=== PATIENT | female | born 1940 | race Caucasian/White ===

== ENCOUNTER → 2017-05-24 | Outpatient (CLI) | payer MEDICARE, OTHER ==
--- NOTE | 2017-05-24 13:04 | RADIOLOGY REPORT (SQ) ---
EXAM DESCRIPTION: CT ABD/PELVIS NO ORAL OR IV COMPLETED DATE/TIME: 05/24/2017 10:18 am REASON FOR STUDY: ABD PAIN (R10.9) R10.9 UNSPECIFIED ABDOMINAL PAIN COMPARISON: None. TECHNIQUE: CT scan of the abdomen and pelvis performed without intravenous or oral contrast. Images reviewed with lung, soft tissue, and bone windows. Reconstructed coronal and sagittal MPR images revi ewed. All images stored on PACS. All CT scanners at this facility use dose modulation, iterative reconstruction, and/or weight based d osing when appropriate to reduce radiation dose to as low as reasonably achievable (ALARA). [facility]: Dose Right [facility]: CareDose [facility]: Dose Right [facility]: Teradose 4D [facility]: [employer] Technologies RADIATION DOSE: Up-to-date CT equipment and radiation dose reduction techniques were employed. CTDIv ol: 8.0 mGy. DLP: 403 mGy-cm.mGy. LIMITATIONS: None. FINDINGS: LOWER CHEST: No significant findings. No nodules or infiltrates. NON-CONTRASTED LIVER, SPLEEN, ADRENALS: A couple of low-density lesions are seen in the liver suggest zoraida of cysts or perhaps hemangiomas. The spleen and adrenal glands are normal. PANCREAS: No masses. No peripancreatic inflammatory changes. GALLBLADDER: No identified stones by CT criteria. No inflammatory changes to suggest cholecystitis. RIGHT KIDNEY AND URETER: No suspicious masses. Assessment limited by lack of IV contrast. No signif icant calcifications. No hydronephrosis or hydroureter. LEFT KIDNEY AND URETER: No suspicious masses. Assessment limited by lack of IV contrast. No signifi cant calcifications. No hydronephrosis or hydroureter. AORTA AND RETROPERITONEUM: No aneurysm. Considerable atherosclerosis including plaques at the origin of SMA and celiac. BOWEL AND PERITONEAL CAVITY: Occasional diverticula are present. No masses are seen. No inflammator y changes are seen. APPENDIX: Not identified. PELVIS, BLADDER, AND ABDOMINAL WALL:The urinary bladder is normal. Uterus is normal for age. There is no adnexal mass or fluid collection. BONES: Lumbar degenerative disc changes. OTHER: No other significant finding. IMPRESSION: 1. Atherosclerosis as described. 2. Minimal diverticulosis coli. 3. Other findings as described. TECHNICAL DOCUMENTATION: JOB ID: [id number] Quality ID # [id number]: Final reports with documentation of one or more dose reduction techniques (e.g., Au tomated exposure control, adjustment of the mA and/or kV according to patient size, use of iterative reconstruction technique) 2010 [employer]- All Rights Reserved
== END ==
LOC: RAD 09:41
PROVIDERS: ATTEND Specialist
DX: R10.9 Unspecified abdominal pain (principal); K57.90 Diverticulosis of intestine, part unspecified, without perforation or abscess without bleeding
CPT/HCPCS: 74176

== ENCOUNTER 2017-06-01 09:34 | Day surgery (SDC) | payer MEDICARE, OTHER ==
--- NOTE | 2017-05-28 13:58 | HISTORY AND PHYSICAL E ---
History and Physical NAME: PAYTON MOREIRA : 1940 AGE: 77Y ADMITTED: 06/01/2017 ROOM: CHIEF COMPLAINT: Abdominal pain. REVIEW OF SYSTEMS: On records, she did have colonoscopy in 1999 showing diverticulosis rectosigmoid. She did have external hemorrhoids. The patient did have another colonoscopy 2003. Upper scope in 2003 showed esophagitis, gastritis and duodenitis and the colon again showed sigmoid diverticulosis, lazy bowel and anemia. The patient did have another colonoscopy done 2014. Back in 2014, she did have colon exam for rectal bleeding, difficult, successful to the cecum, lazy bowel. She does not need colonoscopy since 2019 and beyond. I said consider colonoscopy 10 years in 2014, so at this time will proceed with upper scope regarding reflux and abdominal pain. She did have CEA normal at 1.9. SOCIAL HISTORY: . Does not smoke. Does not drink. PAST SURGICAL HISTORY: 1. Colonoscopy done in 2014. She did have 2. She did have open heart stent 2 bypass. PHYSICAL EXAMINATION: GENERAL: Pleasant, alert and oriented. VITAL SIGNS: Blood pressure 120/80, pulse 80, respirations 18, temp is 98. HEAD, EYES, EARS, NOSE AND THROAT: Normal. ABDOMEN: Soft. NEUROLOGICAL: Exam negative. CONCLUSIONS: Diverticulosis. PLAN: Abdominopelvic CT plain, upper scope scheduled for 06/01/2017. DICTATING PHYSICIAN: SALAZAR PYLE M.D. [id number] PHY#: [id number] ID: [id number] JOB#: [id number] ACCT: [id number] cc:JACK OLIVEROS M.D., MAHMOUD M.D. >
[2017-06-01] MEDS ORDERED: GLYCOPYRROLATE INJ 0.4 MG/2 ML VIAL ONE (10:15)
[2017-06-01] MEDS ORDERED: ONDANSETRON HCL INJ/PF 4 MG/2 ML SDV ONE (10:15)
[2017-06-01] MEDS ORDERED: NALOXONE HCL INJ/PF 0.4 MG/1 ML SDV ONE (10:15)
[2017-06-01] MEDS ORDERED: FLUMAZENIL INJ 0.5 MG/5 ML VIAL IV ONE (10:16)
[2017-06-01] MEDS ORDERED: EPINEPHRINE INJ 1 MG/10 ML DISP.SYRIN ONE (10:16)
[2017-06-01] MEDS ORDERED: MIDAZOLAM 2 MG/2 ML INJ ONE (10:16)
[2017-06-01] MEDS ORDERED: FENTANYL CITRATE INJ/PF 100 MCG/2 ML AMPUL ONE (10:16)
[2017-06-01 11:42] VITALS: BP 143/75
[2017-06-01 11:56] LABS: ABSOLUTE EOSINOPHILS # (AUTO) 0.2 10^3/uL (0.0-0.6); ABSOLUTE LYMPHOCYTES (AUTO) 1.2 10^3/uL (0.5-4.7); ABSOLUTE MONOCYTES (AUTO) 0.3 10^3/uL (0.1-1.4); ABSOLUTE NEUT (AUTO) 3.6 10^3/uL (1.7-8.2); BASOPHILS % (AUTO) 0.7 % (0-2); EOSINOPHILS % (AUTO) 3.6 % (0-6); HEMATOCRIT 37.4 % (36.0-47.0); HEMOGLOBIN 12.6 g/dL (12.0-15.5); HGB HCT DIFFERENCE 0.4; LYMPHOCYTES % (AUTO) 22.6 % (13-45); MEAN CORPUSCULAR HGB CONC 33.6 g/dL (32.0-36.0); MEAN CORPUSCULAR VOLUME 86 fl (80-97); MONOCYTES % (AUTO) 5.3 % (3-13); RED BLOOD COUNT 4.33 10^6/uL (3.72-5.28); RED CELL DISTRIBUTION WIDTH 13.8 % (11.5-14.0); SEGMENTED NEUTROPHILS % (AUTO) 67.8 % (42-78); WHITE BLOOD COUNT 5.3 10^3/uL (4.0-10.5)
--- NOTE | 2017-06-01 12:58 | DISCHARGE SUMMARY E ---
Discharge Summary NAME: PAYTON MOREIRA : 1940 AGE: 77Y ADMITTED: 06/01/2017 DISCHARGED: 06/01/2017 HISTORY/HOSPITAL COURSE: The patient is a 77-year-old female who presents with abdominal pain. She does take aspirin 325 mg. Upper endoscopy today showed no bleeding, no malignancy, no ulcers. She does have a small hiatal hernia, mild esophagitis, mild gastritis, mild duodenitis. MEDICATIONS: 1. The patient does take Fosamax. 2. She takes aspirin 325 mg. 3. Synthroid. DISCHARGE PLAN: 1. Baseline CBC. 2. Hold aspirin for 5 days. 3. Hold Fosamax for 5 days. 4. Followup office visit in a few days. DICTATING PHYSICIAN: SALAZAR PYLE M.D. [id number] PHY#: [id number] ID: [id number] JOB#: [id number] ACCT: [id number] cc:JACK OLIVEROS M.D., MAHMOUD M.D. >
--- NOTE | 2017-06-01 13:01 | OPERATIVE REPORT E ---
Operative Report NAME: PAYTON MOREIRA : 1940 AGE: 77Y DATE OF SURGERY: 06/01/2017 ROOM: PREOPERATIVE DIAGNOSIS: ABDOMINAL PAIN. POSTOPERATIVE DIAGNOSES: 1. ESOPHAGITIS. 2. MILD GASTRITIS. 3. MILD DUODENITIS. 4. MILD SMALL HIATUS HERNIA. OPERATION: 1. Esophagoscopy. 2. Gastroscopy. 3. Duodenoscopy. SURGEON: SALAZAR PYLE M.D. ANESTHESIA: Versed 2, fentanyl 50. TISSUE REMOVED OR ALTERED: None. PROCEDURE: Baby scope passed under guided vision. No difficulties. Esophagoscopy: Junction at 40, small hiatus hernia. No evidence of ulcers, mild esophagitis. Gastroscopy: Mild gastritis. Duodenoscopy: Mild duodenitis. CONCLUSIONS: No evidence of ulcers, small hiatus hernia, mild esophagitis, mild gastritis, mild duodenitis. The patient tolerated the procedure well and discharged to her room in stable condition. PLAN: Baseline CBC. Hold aspirin and nonsteroidal 5 days. Followup office visit in 5 day. DICTATING PHYSICIAN: SALAZAR PYLE M.D. [id number] PHY#: [id number] ID: [id number] JOB#: [id number] ACCT: [id number] cc:JACK OLIVEROS M.D., MAHMOUD M.D. >
== END 2017-06-01 12:00 | disposition home or self-care (01) ==
LOC: END 09:34
PROVIDERS: ATTEND Specialist
PROC: 0DJ08ZZ Inspection of Upper Intestinal Tract, Via Natural or Artificial Opening Endoscopic (ICD-10-PCS; principal; 2017-06-01 10:00)
DX: K44.9 Diaphragmatic hernia without obstruction or gangrene (principal); K20.9 Esophagitis, unspecified; K29.70 Gastritis, unspecified, without bleeding; K29.80 Duodenitis without bleeding; Z79.899 Other long term (current) drug therapy; Z79.82 Long term (current) use of aspirin; Z98.61 Coronary angioplasty status
CPT/HCPCS: 43235; 36415; 85025; J2250; J3010; J2405; J0171; J2310; J3490

== ENCOUNTER 2017-09-26 23:47 | Emergency (ER) | payer MEDICARE, OTHER ==
[2017-09-27] MEDS ORDERED: TRAZODONE HCL 50 MG TABLET PO ONE (02:28)
--- NOTE | 2017-09-27 02:30 | ER Document Report ---
ED General - General Chief Complaint: High Blood Pressure Stated Complaint: BLOOD PRESSURE PROBLEM Time Seen by Provider: 09/27/17 01:43 Notes: Patient is a 77-year-old female who presents with concerns about elevated blood pressure. She reports that she has checked her blood pressure at least 15 times a day and that it remains persistently elevated. She denies any associated chest pain, shortness of breath, headache, neck pain, weakness, numbness or altered mental status. Her only blood pressure medicine is hydrochlorothiazide 12.5 mg daily. She did recently lose her but notes that her blood pressure was high even before he . She was since our primary care doctor regarding this concern was put on buspirone. She has not noted that anything seems to improve or worsen her hypertension. TRAVEL OUTSIDE OF THE [place] IN LAST 30 DAYS: No - Related Data Allergies/Adverse Reactions: No Known Allergies Allergy (Verified 06/01/17 09:57) Past Medical History - General Information source: Patient - Social History Smoking Status: Never Smoker Frequency of alcohol use: None Drug Abuse: None Lives with: Family Family History: Reviewed & Not Pertinent Patient has suicidal ideation: No Patient has homicidal ideation: No - Past Medical History Cardiac Medical History: Reports: Hx Coronary Artery Disease, Hx Heart Attack - 1989, Hx Hypercholesterolemia, Hx Hypertension Denies: Hx Atrial Fibrillation, Hx Congestive Heart Failure, Hx Peripheral Vascular Disease, Hx Pulmonary Embolism, Hx Heart Murmur Pulmonary Medical History: Reports: Hx Asthma, Hx COPD Denies: Hx Bronchitis, Hx Pneumonia, Hx Respiratory Failure, Hx Sleep Apnea, Hx Tuberculosis Neurological Medical History: Denies: Hx Cerebrovascular Accident, Hx Seizures Endocrine Medical History: Reports: Hx Hypothyroidism Renal/ Medical History: Denies: Hx End Stage Renal Disease, Hx Kidney Stones, Hx Peritoneal Dialysis Malignancy Medical History: Denies: Hx Lung Cancer GI Medical History: Reports: Hx Gastroesophageal Reflux Disease. Denies: Hx Hepatitis, Hx Hiatal Hernia, Hx Irritable Bowel, Hx Liver Failure, Hx Pancreatitis, Hx Ulcer Musculoskeltal Medical History: Denies Hx Arthritis, Denies Hx Fibromyalgia, Denies Hx Multiple Sclerosis, Denies Hx Muscular Dystrophy Psychiatric Medical History: Denies: Hx Bipolar Disorder, Hx Dementia, Hx Depression, Hx Post Traumatic Stress Disorder, Hx Schizophrenia Traumatic Medical History: Denies: Hx Fractures Infectious Medical History: Denies: Hx Hepatitis Past Surgical History: Reports: Hx Cardiac Surgery - CABG, Hx Open Heart Surgery - 1989. Denies: Hx Colostomy, Hx Hysterectomy, Hx Mastectomy, Hx Pacemaker - Immunizations Hx Diphtheria, Pertussis, Tetanus Vaccination: Yes Hx Pneumococcal Vaccination: 11/21/12 Review of Systems - Review of Systems Notes: Constitutional: Negative for fever. HENT: Negative for sore throat. Eyes: Negative for visual changes. Cardiovascular: Negative for chest pain. Respiratory: Negative for shortness of breath. Gastrointestinal: Negative for abdominal pain, vomiting or diarrhea. Genitourinary: Negative for dysuria. Musculoskeletal: Negative for back pain. Skin: Negative for rash. Neurological: Negative for headaches, weakness or numbness. 10 point ROS negative except as marked above and in HPI. Physical Exam - Vital signs Vitals: Temp Pulse Resp BP Pulse Ox 97.9 F 74 16 187/97 H 94 09/27/17 00:10 09/27/17 00:10 09/27/17 00:10 09/27/17 00:10 09/27/17 00:10 Interpretation: Hypertensive Notes: PHYSICAL EXAMINATION: GENERAL: Well-appearing, well-nourished and in no acute distress. HEAD: Atraumatic, normocephalic. EYES: Pupils equal round and reactive to light, extraocular movements intact, sclera anicteric, conjunctiva are normal. ENT: nares patent, oropharynx clear without exudates. Moist mucous membranes. NECK: Normal range of motion, supple without lymphadenopathy LUNGS: Breath sounds clear to auscultation bilaterally and equal. No wheezes rales or rhonchi. HEART: Regular rate and rhythm, 3 out of 6 systolic ejection murmur ABDOMEN: Soft, nontender, normoactive bowel sounds. No guarding, no rebound. No masses appreciated. EXTREMITIES: Normal range of motion, no pitting or edema. No cyanosis. NEUROLOGICAL: No focal neurological deficits. Moves all extremities spontaneously and on command. PSYCH: Normal mood, normal affect. SKIN: Warm, Dry, normal turgor, no rashes or lesions noted. Course - Re-evaluation Re-evalutation: 09/27/17 02:27 Presentation of asymptomatic hypertension. Patient denies any symptoms concerning for SAH, dissection, VA, or encephalopaty. Alert, oriented, and denies any symptoms at time of assessment. Normal neuro exam. Per [facility] policy guidelines no labs or imaging will be obtained. An EKG was obtained in triage and is noted to be unremarkable. I will increase patient's hydrochlorothiazide from 12.5 mg daily to 25 mg daily. Will also start the patient on trazodone as she is currently taking Xanax at night for sleep which is not an appropriate medication given her age and history of dementia. I have discussed critical importance of follow up with PCP within 1 week and increased risk of devastating stroke, heart attack, respiratory distress, and other life threatening complications if blood pressure is not reduced appropriately. Diet and exercise habits also discussed. Patient will be discharged with return precautions and follow-up recommendations. - Vital Signs Vital signs: Temp Pulse Resp BP Pulse Ox 97.9 F 74 16 187/97 H 94 09/27/17 00:10 09/27/17 00:10 09/27/17 00:10 09/27/17 00:10 09/27/17 00:10 - EKG Interpretation by Me Additional EKG results interpreted by me: 09/27/17 02:40 Sinus rhythm. Rate is 68. LVH. No ST elevations or depressions. QTC is 434. Discharge - Discharge Clinical Impression: Essential hypertension Insomnia Qualifiers: Insomnia type: unspecified Qualified Code(s): G47.00 - Insomnia, unspecified Condition: Good Disposition: HOME, SELF-CARE Additional Instructions: You were seen today for blood pressure that was high. This is a long-term risk factor for multiple medical problems including heart attack and stroke. However, the blood pressure in of itself will not cause you to have an acute stroke or heart attack over the course of just several days or weeks. You need to have a gradual reduction of your blood pressure back to normal levels over the next several months in conjunction with your primary care physician. Return if you develop headache, weakness, numbness, chest pain, pass out, or have any other symptoms that are concerning to you. Increase your hydrochlorothiazide from 12-1/2 mg daily to 25 mg daily. Please check your blood pressure at most once daily. Please discontinue the use of Xanax as this is not an appropriate medication given your age and history. You are instead being started on a medication called trazodone which you can use at night to assist with sleep. Prescriptions: Trazodone HCl [Desyrel 50 mg Tablet] 50 mg PO QHS #30 tablet RX: Hydrochlorothiazide 25 mg PO DAILY #30 tablet
[2017-09-27 03:06] VITALS: BP 180/91
--- NOTE | 2017-09-27 09:10 | EKG REPORT ---
SEVERITY:- ABNORMAL ECG - SINUS RHYTHM PROBABLE LEFT ATRIAL ABNORMALITY LVH WITH SECONDARY REPOLARIZATION ABNORMALITY ANTERIOR Q WAVES, POSSIBLY DUE TO LVH : Confirmed by: Jude Stuart 27-Sep-2017 09:09:44
== END 2017-09-27 03:04 | disposition home or self-care (01) ==
LOC: ER 23:47
DX: I10 Essential (primary) hypertension (principal); Z79.899 Other long term (current) drug therapy; G47.00 Insomnia, unspecified; I25.10 Atherosclerotic heart disease of native coronary artery without angina pectoris; I25.2 Old myocardial infarction; R01.1 Cardiac murmur, unspecified; J44.9 Chronic obstructive pulmonary disease, unspecified; Z95.1 Presence of aortocoronary bypass graft
CPT/HCPCS: 93005; 99283; 93010; A9270

== ENCOUNTER 2017-10-01 15:56 | Emergency (ER) | payer MEDICARE, OTHER ==
[2017-10-01] MEDS ORDERED: ONDANSETRON HCL INJ/PF 4 MG/2 ML SDV IV ONE ×2 (17:09→21:16)
[2017-10-01] MEDS ORDERED: LABETALOL HCL INJ 20 MG/4 ML DISP.SYRIN IV ONE ×3 (17:10→18:37)
[2017-10-01 19:44] LABS: ABSOLUTE EOSINOPHILS # (AUTO) 0.1 10^3/uL (0.0-0.6); ABSOLUTE LYMPHOCYTES (AUTO) 1.1 10^3/uL (0.5-4.7); ABSOLUTE MONOCYTES (AUTO) 0.4 10^3/uL (0.1-1.4); ABSOLUTE NEUT (AUTO) 5.4 10^3/uL (1.7-8.2); BASOPHILS % (AUTO) 0.5 % (0-2); EOSINOPHILS % (AUTO) 1.6 % (0-6); HEMATOCRIT 40.9 % (36.0-47.0); HEMOGLOBIN 13.8 g/dL (12.0-15.5); HGB HCT DIFFERENCE 0.5; LYMPHOCYTES % (AUTO) 15.7 % (13-45); MEAN CORPUSCULAR HEMOGLOBIN 28.7 pg (27.0-33.4); MEAN CORPUSCULAR HGB CONC 33.6 g/dL (32.0-36.0); MEAN CORPUSCULAR VOLUME 85 fl (80-97); MONOCYTES % (AUTO) 5.9 % (3-13); RED CELL DISTRIBUTION WIDTH 14.2 % (11.5-14.0); SEGMENTED NEUTROPHILS % (AUTO) 76.3 % (42-78)
[2017-10-01 20:05] LABS: ALANINE AMINOTRANSFERASE 27 U/L (9-52); ALBUMIN 4.3 g/dL (3.5-5.0); ALKALINE PHOSPHATASE 63 U/L (38-126); ANION GAP 10 (5-19); ASPARTATE AMINO TRANSFERASE 27 U/L (14-36); BILIRUBIN,DIRECT 0.4 mg/dL (0.0-0.4); BLOOD UREA NITROGEN 13 mg/dL (7-20); CALCIUM 9.8 mg/dL (8.4-10.2); CARBON DIOXIDE 30 mmol/L (22-30); CHLORIDE 93 mmol/L (98-107); CREATININE RESULT 0.76 mg/dL (0.52-1.25); GLUCOSE 117 mg/dL (75-110); MAGNESIUM 1.5 mg/dL (1.6-2.3); POTASSIUM 3.6 mmol/L (3.6-5.0); SODIUM 132.5 mmol/L (137-145)
[2017-10-01] MEDS ORDERED: MAGNESIUM SULFATE/D5W 1 GM/100 ML RTUPB IV ONE (20:33)
--- NOTE | 2017-10-01 20:47 | ER Document Report ---
ED General - General Chief Complaint: High Blood Pressure Stated Complaint: BLOOD PRESSURE PROBLEMS Time Seen by Provider: 10/01/17 16:58 Mode of Arrival: Medic Information source: Patient, Relative TRAVEL OUTSIDE OF THE [place] IN LAST 30 DAYS: No - HPI Patient complains to provider of: high blood pressure/nausea Onset: Last week Onset/Duration: Intermittent Quality of pain: No pain Associated symptoms: Nausea, Vomiting Exacerbated by: Denies Relieved by: Denies Notes: Patient was seen here last for hypertension. Hydrochlorothiazide was increased from 12.5-25 mg p.o. daily. Patient was taken off her benzodiazepine and given a prescription for trazodone which she has not filled yet. Patient presents with nausea vomiting and high blood pressure. Not fill her HCTZ prescription however she has doubled her dose using the medication she already had. - Related Data Allergies/Adverse Reactions: No Known Allergies Allergy (Verified 06/01/17 09:57) Past Medical History - General Information source: Patient, Relative - Social History Smoking Status: Former Smoker Chew tobacco use (# tins/day): No Frequency of alcohol use: None Drug Abuse: None Lives with: Family, Other - Patient's 1 week ago Family History: Reviewed & Not Pertinent Patient has suicidal ideation: No Patient has homicidal ideation: No - Past Medical History Cardiac Medical History: Reports: Hx Coronary Artery Disease, Hx Heart Attack - 1989, Hx Hypercholesterolemia, Hx Hypertension Denies: Hx Atrial Fibrillation, Hx Congestive Heart Failure, Hx Peripheral Vascular Disease, Hx Pulmonary Embolism, Hx Heart Murmur Pulmonary Medical History: Reports: Hx Asthma, Hx COPD Denies: Hx Bronchitis, Hx Pneumonia, Hx Respiratory Failure, Hx Sleep Apnea, Hx Tuberculosis Neurological Medical History: Denies: Hx Cerebrovascular Accident, Hx Seizures Endocrine Medical History: Reports: Hx Hypothyroidism Renal/ Medical History: Denies: Hx End Stage Renal Disease, Hx Kidney Stones, Hx Peritoneal Dialysis Malignancy Medical History: Denies: Hx Lung Cancer GI Medical History: Reports: Hx Gastroesophageal Reflux Disease. Denies: Hx Hepatitis, Hx Hiatal Hernia, Hx Irritable Bowel, Hx Liver Failure, Hx Pancreatitis, Hx Ulcer Musculoskeltal Medical History: Denies Hx Arthritis, Denies Hx Fibromyalgia, Denies Hx Multiple Sclerosis, Denies Hx Muscular Dystrophy Psychiatric Medical History: Denies: Hx Bipolar Disorder, Hx Dementia, Hx Depression, Hx Post Traumatic Stress Disorder, Hx Schizophrenia Traumatic Medical History: Denies: Hx Fractures Infectious Medical History: Denies: Hx Hepatitis Past Surgical History: Reports: Hx Cardiac Surgery - CABG, Hx Open Heart Surgery - 1989. Denies: Hx Colostomy, Hx Hysterectomy, Hx Mastectomy, Hx Pacemaker - Immunizations Hx Diphtheria, Pertussis, Tetanus Vaccination: Yes Hx Pneumococcal Vaccination: 11/21/12 Review of Systems - Review of Systems Constitutional: denies: No symptoms reported, See HPI, Chills, Diaphoresis, Fever, Malaise, Weakness, Other, Weight gain, Weight loss, Recent illness EENT: denies: No symptoms reported, See HPI, Eye pain, Eye discharge, Blurred vision, Tearing, Double vision, Ear pain, Ear discharge, Nose pain, Nose congestion, Nose discharge, Sinus pressure, Sinus discharge, Throat pain, Difficulty swallowing, Throat swelling, Mouth pain, Mouth swelling, Dental problem, Vertigo, Other Cardiovascular: No symptoms reported Gastrointestinal: Diarrhea, Nausea, Vomiting Genitourinary: No symptoms reported Female Genitourinary: No symptoms reported Musculoskeletal: No symptoms reported Skin: No symptoms reported Hematologic/Lymphatic: No symptoms reported Neurological/Psychological: Anxiety. denies: Lost consciousness, Headaches Physical Exam - Vital signs Vitals: Temp Pulse Resp BP Pulse Ox 98.3 F 78 18 234/118 H 98 10/01/17 16:02 10/01/17 16:02 10/01/17 16:02 10/01/17 16:02 10/01/17 16:02 - Notes Notes: PHYSICAL EXAMINATION: GENERAL: Patient appears uncomfortable in bed with nausea and dry heaves. HEAD: Atraumatic, normocephalic. EYES: Pupils equal round and reactive to light, extraocular movements intact, conjunctiva are normal. ENT: Nares patent, oropharynx clear without exudates. Moist mucous membranes. NECK: Normal range of motion, supple without lymphadenopathy LUNGS: Breath sounds clear to auscultation bilaterally and equal. No wheezes rales or rhonchi. HEART: Regular rate and rhythm without murmurs ABDOMEN: Soft, nontender, nondistended abdomen. No guarding, no rebound. No masses appreciated. Female : deferred Musculoskeletal: Normal range of motion, no pitting or edema. No cyanosis. NEUROLOGICAL: Cranial nerves grossly intact. Normal speech, normal gait. Normal sensory, motor exams PSYCH: Normal mood, normal affect. SKIN: Warm, Dry, normal turgor, no rashes or lesions noted. Course - Re-evaluation Re-evalutation: 10/01/17 20:50 Patient's pressure is now 165 over 75. She is no longer nauseous. She is asking for nader adolph and crackers. I did discuss with her and her granddaughter who is a nurse that the patient needs to monitor her blood pressure. Patient states she does have a blood pressure machine and she monitors it at home on a regular basis. I told her to call her primary medical doctor tomorrow to be seen within the next few days. Patient states she has an appointment on the . However if blood pressure is high tomorrow, she is to return to the emergency department if she cannot see her primary doctor tomorrow. The daughter did ask if the troponin was done I said yes it was it was normal limits. All questions were answered patient left in stable condition 10/01/17 20:51 10/01/17 22:33 - Vital Signs Vital signs: Temp Pulse Resp BP Pulse Ox 98.3 F 78 17 185/95 H 96 10/01/17 16:02 10/01/17 16:02 10/01/17 21:46 10/01/17 21:46 10/01/17 21:46 - Laboratory Result Diagrams: 10/01/17 19:27 10/01/17 19:27 Laboratory results interpreted by me: 10/01/17 10/01/17 19:27 19:27 RDW 14.2 H Sodium 132.5 L Chloride 93 L Glucose 117 H Magnesium 1.5 L - EKG Interpretation by Me EKG shows normal: Sinus rhythm Rate: Normal Rhythm: NSR When compared to previous EKG there are: No significant change Discharge - Discharge Clinical Impression: Essential hypertension, Hypomagnesemia Condition: Stable Disposition: HOME, SELF-CARE Instructions: High Blood Pressure ([facility]), High Blood Pressure, Requiring Treatment ([facility]) Additional Instructions: Please monitor blood pressure at home with your blood pressure machine as we discussed. If it continues to run high please call your primary medical doctor. Follow-up as scheduled October 04 with your primary medical doctor, if blood pressure is high please call tomorrow for appointment as I discussed with you and her granddaughter who is a nurse. Forms: Elevated Blood Pressure Referrals: JACK OLIVEROS MD [Primary Care Provider] - Follow up tomorrow
[2017-10-01] MEDS ORDERED: NORMAL SALINE 500 ML IV ONE (21:17)
[2017-10-01 22:34] VITALS: BP 180/85
--- NOTE | 2017-10-01 23:06 | EKG REPORT ---
SEVERITY:- OTHERWISE NORMAL ECG - SINUS RHYTHM VENTRICULAR PREMATURE COMPLEX LVH NONSPECIFIC ST-T CHANGES VS LVH RELATED : Confirmed by: Jude Stuart 01-Oct-2017 23:06:12
== END 2017-10-01 22:35 | disposition home or self-care (01) ==
LOC: ER 15:56
DX: I10 Essential (primary) hypertension (principal); E83.42 Hypomagnesemia; R11.0 Nausea; I25.10 Atherosclerotic heart disease of native coronary artery without angina pectoris; E78.00 Pure hypercholesterolemia, unspecified; J44.9 Chronic obstructive pulmonary disease, unspecified; E03.9 Hypothyroidism, unspecified; I25.2 Old myocardial infarction; Z95.1 Presence of aortocoronary bypass graft
CPT/HCPCS: 93005; 96376; 99284; 96361; 96375; 96365; 36415; 83735; 84443; 85025; 80053; 84484; 93010; J3490; J3475; J2405; J7040

== ENCOUNTER → 2019-01-07 | Outpatient (CLI) | payer MEDICARE, OTHER ==
--- NOTE | 2019-01-07 15:47 | RADIOLOGY REPORT (SQ) ---
EXAM DESCRIPTION: VENOUS UNILATERAL LOWER COMPLETED DATE/TIME: 01/07/2019 3:41 pm REASON FOR STUDY: RLE SWELLING I82.401 ACUTE EMBOLISM AND THOMBOS UNSP DEEP VEINS OF R LOW COMPARISON: None. TECHNIQUE: Dynamic and static farr scale and color images acquired of the right leg venous system. S elected spectral images acquired with additional compression and augmentation maneuvers. The contrala teral common femoral vein and saphenofemoral junction were also imaged. Images stored on PACS. LIMITATIONS: None. FINDINGS: COMMON FEMORAL: Normal phasicity, compression and augmentation. No visualized echogenic ma terial on farr scale. No defects on color images. FEMORAL: Normal compression and augmentation. No visualized echogenic material on farr scale. No defe cts on color images. POPLITEAL: Normal compression, augmentation. No visualized echogenic material on farr scale. No defec ts on color images. CALF VESSELS: Normal compression, augmentation. No visualized echogenic material on farr scale. No de fects on color images. GSV and SSV: Normal compression, augmentation. No visualized echogenic material on farr scale. No def ects on color images. ANY DEEP VENOUS INSUFFICIENCY: Not evaluated. ANY EVIDENCE OF POPLITEAL CYST: There is a complex 5.7 x 3.4 x 2.6 cm popliteal lesion. This most li paz represents complex popliteal cyst. Less likely hematoma or abscess. The lesion is avascular. OTHER: No other significant finding. CONTRALATERAL COMMON FEMORAL VEIN AND SAPHENOFEMORAL JUNCTION: Normal phasicity, compression and augmentation. No visualized echogenic material on farr scale. No de fects on color images. IMPRESSION: 1. No evidence of DVT or SVT in the right leg. 2. Complex popliteal cystic mass measured 5.7 x 3.4 x 2.6 cm as described above. This most likely r epresents complex popliteal cyst possibly infected popliteal cyst. Less likely hematoma. TECHNICAL DOCUMENTATION: JOB ID: [id number] [employer]- All Rights Reserved Reading location - IP/workstation name: [email or web address]
== END ==
LOC: SP 12:30
PROVIDERS: ATTEND Physician Assistant
DX: I82.401 Acute embolism and thrombosis of unspecified deep veins of right lower extremity (principal)
CPT/HCPCS: 93971

== ENCOUNTER → 2019-05-06 | Outpatient (CLI) | payer MEDICARE, OTHER ==
--- NOTE | 2019-05-06 15:23 | RADIOLOGY REPORT (SQ) ---
EXAM DESCRIPTION: CT ABD/PELVIS WITH IV ORAL COMPLETED DATE/TIME: 05/06/2019 2:05 pm REASON FOR STUDY: R10.9 UNSPECIFIED ABDOMINAL PAIN R10.9 UNSPECIFIED ABDOMINAL PAIN COMPARISON: 05/24/2017 TECHNIQUE: CT scan of the abdomen and pelvis performed using helical scanning technique with dynamic intravenous contrast injection. The patient was given oral contrast. Images reviewed with lung, sof t tissue, and bone windows. Reconstructed coronal and sagittal MPR images reviewed. Delayed images fo r evaluation of the urinary system also acquired. All images stored on PACS. All CT scanners at this facility use dose modulation, iterative reconstruction, and/or weight based d osing when appropriate to reduce radiation dose to as low as reasonably achievable (ALARA). [facility]: Dose Right [facility]: CareDose [facility]: Dose Right [facility]: Teradose 4D [facility]: PushSpring CONTRAST TYPE AND DOSE: contrast/concentration: Isovue 350.00 mg/ml; Total Contrast Delivered: 81.0 ml; Total Saline Delivered: 45.0 ml RENAL FUNCTION: Creatinine 0.9 RADIATION DOSE: CT Rad equipment meets quality standard of care and radiation dose reduction techniq ues were employed. CTDIvol: 8.8 - 12.4 mGy. DLP: 1131 mGy-cm.. LIMITATIONS: None. FINDINGS: LOWER CHEST: No significant findings. No nodules or infiltrates. LIVER: Unchanged hypodense hepatic lesions, likely cysts. No new hepatic lesions. No intrahepatic d uctal dilation. SPLEEN: No focal lesions. Normal size. Splenule noted. PANCREAS: No masses. No significant calcifications. No adjacent inflammation or peripancreatic fluid collections. Pancreatic duct not dilated. GALLBLADDER: Decompressed. No radiopaque stones. ADRENAL GLANDS: Normal in size and symmetry. RIGHT KIDNEY AND URETER: No solid masses. No significant calcifications. No hydronephrosis or hyd roureter. LEFT KIDNEY AND URETER: No solid masses. No significant calcifications. No hydronephrosis or hydr oureter. AORTA AND VESSELS: Aortoiliac atherosclerosis without aneurysm. No dissection. Renal arteries, SMA, c eliac without stenosis. RETROPERITONEUM: No retroperitoneal adenopathy, hemorrhage or masses. BOWEL AND PERITONEAL CAVITY: Scattered colonic diverticula. No focal bowel wall thickening. No evid ence of intestinal obstruction. APPENDIX: Not visualized. PELVIS: No mass. No free fluid. Normal bladder. ABDOMINAL WALL: No masses. Tiny fat containing umbilical hernia. BONES: Unchanged sclerotic focus within the left ilium, likely bone island. No new lytic or blastic osseous lesions. Mild lower lumbar spondylosis. OTHER: No other significant finding. IMPRESSION: No evidence of acute intra-abdominal/pelvic process. TECHNICAL DOCUMENTATION: JOB ID: [id number] Quality ID # [id number]: Final reports with documentation of one or more dose reduction techniques (e.g., Au tomated exposure control, adjustment of the mA and/or kV according to patient size, use of iterative reconstruction technique) 2010 [employer]- All Rights Reserved Reading location - IP/workstation name: [email or web address]
== END ==
LOC: RAD 13:28
PROVIDERS: ATTEND Surgery
DX: K57.30 Diverticulosis of large intestine without perforation or abscess without bleeding (principal); R10.9 Unspecified abdominal pain
CPT/HCPCS: 74177; 82565

== ENCOUNTER → 2019-07-30 | Outpatient (CLI) | payer MEDICARE, OTHER ==
--- NOTE | 2019-07-30 10:39 | RADIOLOGY REPORT (SQ) ---
EXAM DESCRIPTION: U/S EXTREMITY NONVASCULAR LTD COMPLETED DATE/TIME: 07/30/2019 7:46 am REASON FOR STUDY: KNEE PAIN (M25.569) R/O LOAIZA CYST M25.569 PAIN IN UNSPECIFIED KNEE COMPARISON: None. TECHNIQUE: Static and real time farr scale ultrasound, and color Doppler acquired in the popliteal f javier on the right. LIMITATIONS: None. FINDINGS: SOFT TISSUES: There is a hypoechoic collection within the popliteal space measuring 6.9 x 4.4 x 2.7 cm with scattered internal echoes. OTHER:No other significant findings. IMPRESSION: Right-sided 6.9 x 4.4 x 2.7 cm Loaiza's cyst. TECHNICAL DOCUMENTATION: JOB ID: [id number] [employer]- All Rights Reserved Reading location - IP/workstation name: [email or web address]
== END ==
LOC: RAD 07:20
PROVIDERS: ATTEND Internal Medicine Geriatric Medicine
DX: M71.21 Synovial cyst of popliteal space [Baker], right knee (principal); M25.561 Pain in right knee
CPT/HCPCS: 76882

== ENCOUNTER 2019-08-18 02:17 | Emergency (ER) | payer MEDICARE, OTHER ==
[2019-08-18] MEDS ORDERED: ASPIRIN 81 MG TABLET, CHEWABLE PO ONE (02:49)
[2019-08-18] MEDS ORDERED: LIDOCAINE 2% VISCOUS SOLN 20 ML UDCUP PO ONE (02:50)
[2019-08-18] MEDS ORDERED: MAG HYDROX/AL HYDROX/SIMETH SUSP 30 ML UDCUP PO ONE (02:50)
[2019-08-18] MEDS ORDERED: METOCLOPRAMIDE HCL ORAL SOLN 10 MG/10 ML UDCUP PO ONE (02:50)
[2019-08-18] MEDS ORDERED: MORPHINE SULFATE 10 MG/ML INJ IV ONE (02:50)
--- NOTE | 2019-08-18 02:52 | ER Document Report ---
ED General - General Chief Complaint: Chest Pain Stated Complaint: CHEST PAIN Time Seen by Provider: 08/18/19 02:38 Primary Care Provider: ELENA FRYE MD [ASSOCIATE] - Follow up as needed TRAVEL OUTSIDE OF THE [place] IN LAST 30 DAYS: No - HPI Notes: 79-year-old female presents with chest pain. She describes gradual onset midsternal chest pain from her xiphoid to mid chest. Began on Sunday, gradual onset, nonradiating. Moderate intensity. No fever, chills or sweats. No d yspnea. No abdominal pain. No nausea vomiting. No other modifying factors, no other associated symptoms, no other provocative or palliative factors. - Related Data Allergies/Adverse Reactions: No Known Allergies Allergy (Verified 06/01/17 09:57) Home Medications: pt w/chest pain room available pt to rm Past Medical History - Social History Smoking Status: Never Smoker Family History: Reviewed & Not Pertinent Patient has suicidal ideation: No Patient has homicidal ideation: No - Past Medical History Cardiac Medical History: Reports: Hx Coronary Artery Disease, Hx Heart Attack - 1989, Hx Hypercholesterolemia, Hx Hypertension Denies: Hx Atrial Fibrillation, Hx Congestive Heart Failure, Hx Peripheral Vascular Disease, Hx Pulmonary Embolism, Hx Heart Murmur Pulmonary Medical History: Reports: Hx Asthma, Hx COPD Denies: Hx Bronchitis, Hx Pneumonia, Hx Respiratory Failure, Hx Sleep Apnea, Hx Tuberculosis Neurological Medical History: Denies: Hx Cerebrovascular Accident, Hx Seizures, Hx Parkinson's Disease Endocrine Medical History: Reports: Hx Hypothyroidism Renal/ Medical History: Denies: Hx End Stage Renal Disease, Hx Kidney Stones, Hx Peritoneal Dialysis Malignancy Medical History: Denies: Hx Lung Cancer GI Medical History: Reports: Hx Gastroesophageal Reflux Disease. Denies: Hx Hepatitis, Hx Hiatal Hernia, Hx Irritable Bowel, Hx Liver Failure, Hx Pancreatitis, Hx Ulcer Musculoskeletal Medical History: Denies Hx Arthritis, Denies Hx Fibromyalgia, Denies Hx Multiple Sclerosis, Denies Hx Muscular Dystrophy Psychiatric Medical History: Denies: Hx Bipolar Disorder, Hx Dementia, Hx Depression, Hx Post Traumatic Stress Disorder, Hx Schizophrenia Traumatic Medical History: Denies: Hx Fractures Infectious Medical History: Denies: Hx Hepatitis Past Surgical History: Reports: Hx Cardiac Surgery - CABG, Hx Open Heart Surgery - 1989. Denies: Hx Colostomy, Hx Hysterectomy, Hx Mastectomy, Hx Pacemaker - Immunizations Hx Diphtheria, Pertussis, Tetanus Vaccination: Yes Hx Pneumococcal Vaccination: 11/21/12 Review of Systems - Review of Systems Notes: Review of systems as in the history of present illness, otherwise negative x 10 systems. Physical Exam - Vital signs Vitals: Temp Pulse Resp BP Pulse Ox 97.8 F 70 16 156/67 H 96 08/18/19 02:34 08/18/19 02:34 08/18/19 02:34 08/18/19 02:34 08/18/19 02:34 - Notes Notes: General: Well developed . HEENT: Normocephalic, atraumatic. Pupils equal round reactive to light. No JVD. Chest: No trauma. Respiratory: Good air exchange, normal excursion. Cardiac: Regular rhythm. No murmurs or gallops. Abdomen: Soft, benign. Nondistended. Nontender. Back: No asymmetry or gross abnormality. Motor: Grossly normal power and tone. Neurologic: Alert, nonfocal. Cranial nerves II-12 are intact. Sensation intact. Vascular: Well perfused. Normal peripheral pulses. Skin: No petechiae or purpura. Course - Re-evaluation Re-evalutation: 08/18/19 02:51 Appearing female no history of cardiac disease, somewhat atypical chest pain. Consider underlying ACS, esophageal spasm, pancreatitis, other etiology. Plan proceed basic labs, analgesics, biomarkers, x-ray, serial exams and ECG, reassess. 08/18/19 04:13 Labs reviewed, CBC unremarkable, chemistry unremarkable, troponin normal. Patient is pain-free, feels much better. Given the atypical and prolonged nature of her pain I think a single negative troponin makes the posttest probability of ACS acceptably low. May be related to reflux or esophagitis, advised to initiate H2 wei therapy. Her request discharge home with prescription for analgesics as well. We will see her doctor tomorrow. - Vital Signs Vital signs: Temp Pulse Resp BP Pulse Ox 97.8 F 70 16 156/67 H 99 08/18/19 02:34 08/18/19 02:34 08/18/19 02:34 08/18/19 02:34 08/18/19 03:05 - Laboratory Result Diagrams: 08/18/19 02:40 08/18/19 02:40 Laboratory results interpreted by me: 08/18/19 08/18/19 02:40 02:40 RDW 14.6 H Sodium 133.8 L Potassium 3.5 L Chloride 96 L - EKG Interpretation by Hi EKG shows normal: Sinus rhythm, Diamond, Intervals, QRS Complexes - Nonspecific ST- T changes, acute ischemic changes Discharge - Discharge Clinical Impression: Chest pain Qualifiers: Chest pain type: other chest pain Qualified Code(s): R07.89 - Other chest pain; R07.8 - Other chest pain Condition: Stable Disposition: HOME, SELF-CARE Instructions: Chest Pain of Unclear Cause ([facility]) Prescriptions: Famotidine [Pepcid 20 mg Tablet] 20 mg PO BID #12 tablet Tramadol HCl [Ultram 50 mg Tablet] 50 mg PO Q6 PRN #12 tablet PRN Reason: Referrals: ELENA FRYE MD [ASSOCIATE] - Follow up as needed
[2019-08-18 03:06] LABS: ABSOLUTE EOSINOPHILS # (AUTO) 0.2 10^3/uL (0.0-0.6); ABSOLUTE LYMPHOCYTES (AUTO) 1.7 10^3/uL (0.5-4.7); ABSOLUTE MONOCYTES (AUTO) 0.6 10^3/uL (0.1-1.4); ABSOLUTE NEUT (AUTO) 5.8 10^3/uL (1.7-8.2); BASOPHILS % (AUTO) 0.6 % (0-2); EOSINOPHILS % (AUTO) 2.3 % (0-6); HEMATOCRIT 38.8 % (36.0-47.0); LYMPHOCYTES % (AUTO) 20.2 % (13-45); MEAN CORPUSCULAR HEMOGLOBIN 28.5 pg (27.0-33.4); MEAN CORPUSCULAR HGB CONC 33.5 g/dL (32.0-36.0); MEAN CORPUSCULAR VOLUME 85 fl (80-97); MONOCYTES % (AUTO) 7.2 % (3-13); PLATELET COUNT 207 10^3/uL (150-450); RED BLOOD COUNT 4.57 10^6/uL (3.72-5.28); RED CELL DISTRIBUTION WIDTH 14.6 % (11.5-14.0); SEGMENTED NEUTROPHILS % (AUTO) 69.7 % (42-78); TOTAL CELLS COUNTED % (AUTO) 100 %; WHITE BLOOD COUNT 8.3 10^3/uL (4.0-10.5)
--- NOTE | 2019-08-18 03:18 | RADIOLOGY REPORT (SQ) ---
EXAM DESCRIPTION: XR CHEST 1 VIEW COMPLETED DATE/TME: 08/18/2019 02:50 CLINICAL HISTORY: 79 years, Female, chest pain COMPARISON: 07/02/13 NUMBER OF VIEWS: One TECHNIQUE: AP view of the chest LIMITATIONS: None. FINDINGS: The lungs are clear. The heart is normal in size. No pneumothorax or pleural effusion. No acute fracture. IMPRESSION: No acute cardiopulmonary abnormality. copyright 2010 [employer]- All Rights Reserved
[2019-08-18 03:33] LABS: ALKALINE PHOSPHATASE 69 U/L (38-126); ANION GAP 8 (5-19); ASPARTATE AMINO TRANSFERASE 22 U/L (14-36); BILIRUBIN,DIRECT 0.1 mg/dL (0.0-0.4); BILIRUBIN,TOTAL 0.4 mg/dL (0.2-1.3); BLOOD UREA NITROGEN 15 mg/dL (7-20); CALCIUM 9.8 mg/dL (8.4-10.2); CARBON DIOXIDE 30 mmol/L (22-30); CHLORIDE 96 mmol/L (98-107); GLUCOSE 87 mg/dL (75-110); POTASSIUM 3.5 mmol/L (3.6-5.0); TOTAL PROTEIN 6.6 g/dL (6.3-8.2)
[2019-08-18 04:20] VITALS: BP 140/70
--- NOTE | 2019-08-18 07:47 | EKG REPORT ---
SEVERITY:- ABNORMAL ECG - SINUS RHYTHM CONSIDER ANTEROSEPTAL INFARCT DIFFUSE NONSPECIFIC ST-T CHANGES : Confirmed by: Jameel Saldana MD 18-Aug-2019 07:46:56
== END 2019-08-18 04:31 | disposition home or self-care (01) ==
LOC: ER 02:17
DX: R07.89 Other chest pain (principal); I25.10 Atherosclerotic heart disease of native coronary artery without angina pectoris; I10 Essential (primary) hypertension; I25.2 Old myocardial infarction; J44.9 Chronic obstructive pulmonary disease, unspecified; Z95.1 Presence of aortocoronary bypass graft
CPT/HCPCS: 93005; 36415; 83690; 85025; 80053; 84484; 71045; 93010; A9270 ×3; J3490; J2270; 96374; 99285

== ENCOUNTER 2019-11-04 14:13 | Inpatient (IN) | payer MEDICARE, OTHER ==
[2019-11-04] MEDS ORDERED: ONDANSETRON HCL INJ/PF 4 MG/2 ML SDV IV PRN (15:11)
[2019-11-04] MEDS: ACETAMINOPHEN 325 MG TABLET PO PRN (16:07)
[2019-11-04] MEDS: NORMAL SALINE 1000 ML 1,000 ML IV PRN (16:07)
[2019-11-04 16:44] LABS: ABSOLUTE EOSINOPHILS # (AUTO) 0.2 10^3/uL (0.0-0.6); ABSOLUTE LYMPHOCYTES (AUTO) 1.1 10^3/uL (0.5-4.7); ABSOLUTE MONOCYTES (AUTO) 0.3 10^3/uL (0.1-1.4); ABSOLUTE NEUT (AUTO) 3.7 10^3/uL (1.7-8.2); BASOPHILS % (AUTO) 0.5 % (0-2); HEMATOCRIT 37.8 % (36.0-47.0); HEMOGLOBIN 12.7 g/dL (12.0-15.5); LYMPHOCYTES % (AUTO) 20.2 % (13-45); MEAN CORPUSCULAR HEMOGLOBIN 28.9 pg (27.0-33.4); MEAN CORPUSCULAR HGB CONC 33.7 g/dL (32.0-36.0); MEAN CORPUSCULAR VOLUME 86 fl (80-97); MONOCYTES % (AUTO) 6.2 % (3-13); PLATELET COUNT 173 10^3/uL (150-450); RED BLOOD COUNT 4.41 10^6/uL (3.72-5.28); RED CELL DISTRIBUTION WIDTH 14.4 % (11.5-14.0); SEGMENTED NEUTROPHILS % (AUTO) 70.1 % (42-78); TOTAL CELLS COUNTED % (AUTO) 100 %; WHITE BLOOD COUNT 5.3 10^3/uL (4.0-10.5)
[2019-11-04 17:13] LABS: ALBUMIN 3.6 g/dL (3.5-5.0); ALKALINE PHOSPHATASE 50 U/L (38-126); ANION GAP 7 (5-19); ASPARTATE AMINO TRANSFERASE 21 U/L (14-36); BILIRUBIN,DIRECT 0.2 mg/dL (0.0-0.4); BILIRUBIN,TOTAL 0.4 mg/dL (0.2-1.3); BLOOD UREA NITROGEN 19 mg/dL (7-20); CARBON DIOXIDE 28 mmol/L (22-30); CHLORIDE 101 mmol/L (98-107); GLUCOSE 96 mg/dL (75-110); POTASSIUM 3.8 mmol/L (3.6-5.0); TOTAL PROTEIN 6.3 g/dL (6.3-8.2)
[2019-11-04] MEDS: METHYLPREDNISOLONE INJ 125 MG/2 ML SDV IV SCH (17:24)
--- NOTE | 2019-11-04 17:48 | RADIOLOGY REPORT (SQ) ---
EXAM DESCRIPTION: CHEST 2 VIEWS COMPLETED DATE/TIME: 11/04/2019 5:38 pm REASON FOR STUDY: SOB, COPD COMPARISON: 08/18/2019. EXAM PARAMETERS: NUMBER OF VIEWS: two views TECHNIQUE: Digital Frontal and Lateral radiographic views of the chest acquired. RADIATION DOSE: NA LIMITATIONS: none FINDINGS: LUNGS AND PLEURA: No opacities, masses or pneumothorax. No pleural effusion. MEDIASTINUM AND HILAR STRUCTURES: No masses or contour abnormalities. HEART AND VASCULAR STRUCTURES: Heart normal size. No evidence for failure. BONES: No acute findings. HARDWARE: Sternotomy wires and surgical clips. OTHER: No other significant finding. IMPRESSION: NO ACUTE RADIOGRAPHIC FINDING IN THE CHEST. TECHNICAL DOCUMENTATION: JOB ID: [id number] [employer]- All Rights Reserved Reading location - IP/workstation name: [email or web address]
[2019-11-04] MEDS ORDERED: NITROGLYCERIN 0.4 MG/TAB 25 TAB/BOTTLE SL PRN (20:06)
[2019-11-04] MEDS ORDERED: (PENDING PHARMACY ID) (Trazodone Hcl [Desyrel] 100 MG) PO PRN (20:06)
--- NOTE | 2019-11-04 20:06 | PDOC H&P ---
History of Present Illness Admission Date/PCP: 11/04/19 14:13 DANY OSUNKOYA Patient complains of: Difficulty with breathing History of Present Illness: PAYTON MOREIRA is a 79 year old female known to my practice who presented to the office with her daughter complaining about worsening difficulty with breathing over preceding few days. She reported associated wheezing, productive cough with pleurisy, fever, chills, breaking out in sweat, nausea, sore throat, dizziness, and headache. Her initial evaluation in the office revealed acutely ill looking elderly patient with fairly stable vitals with demonstrable coughing spells. Her influenza A and B as well as rapid strep group A assessment were negative. Her chest X ray did suggest COPD with possible right lower lobe early airspace disease process. She was advised hospitalization on observation bed for further evaluation and management. Her morbidities are as listed below. Past Medical History Cardiac Medical History: Reports: Coronary Artery Disease, Myocardial Infarction - 1989, Hyperlipidema, Hypertension Denies: Atrial Fibrillation, Congestive Heart Failure, Peripheral Vascular Disease, Pulmonary Embolism, Heart Murmur Pulmonary Medical History: Reports: Asthma, Chronic Obstructive Pulmonary Disease (COPD) Denies: Bronchitis, Pneumonia, Respiratory Failure, Sleep Apnea, Tuberculosis Neurological Medical History: Denies: Seizures Endocrine Medical History: Reports: Hypothyroidism Renal/ Medical History: Denies: End Stage Renal Disease Malignancy Medical History: Denies: Lung Cancer GI Medical History: Reports: Gastroesophageal Reflux Disease Denies: Hepatitis, Hiatal Hernia Musculoskeltal Medical History: Denies: Arthritis, Fibromyalgia Psychiatric Medical History: Reports: Depression Denies: Bipolar Disorder, Dementia, Post Traumatic Stress Disorder Hematology: Denies: Anemia, Sickle Cell Disease Past Surgical History Past Surgical History: Denies: Amputation, Colostomy, Hysterectomy, Mastectomy, Pacemaker Social History Smoking Status: Never Smoker Electronic Cigarette use?: No Frequency of Alcohol Use: None Hx Recreational Drug Use: No Drugs: None Hx Prescription Drug Abuse: No - Advance Directive Resuscitation Status: Full Code Family History Family History: Reviewed & Not Pertinent Parental Family History Reviewed: Yes Children Family History Reviewed: Yes Sibling(s) Family History Reviewed.: Yes Medication/Allergy Home Medications: Albuterol Sulfate [Proair Hfa Inhalation Aerosol 8.5 gm Mdi] 2 puff IH QIDP PRN 11/04/19 Amlodipine Besylate [Norvasc 5 mg Tablet] 5 mg PO Q12 11/04/19 Buspirone HCl [Buspar 15 mg Tablet] 1 tab PO DAILY 11/04/19 Donepezil HCl [Aricept] 10 mg PO DAILY 11/04/19 Ezetimibe [Zetia 10 mg Tablet] 10 mg PO DAILY 11/04/19 Fexofenadine HCl [Aurelia] 180 mg PO DAILYP PRN 11/04/19 Fluticasone/Salmeterol [Advair 250-50 Diskus 14 Dose/Diskus] 1 inh IH Q12 11/04/19 Hydrochlorothiazide [Hydrodiuril 25 mg Tablet] 25 mg PO DAILY 11/04/19 Hydrocortisone [Proctozone-Hc] 1 applic TP BIDP PRN 11/04/19 Nitroglycerin [Nitrostat 0.4 mg (1/150 Gr) Tabs 25/Bottle] 1 tab SL Q5MP PRN 11/04/19 Omeprazole 20 mg PO DAILY 11/04/19 Potassium Chloride [Klor-Con 10 Meq Tablet ER] 10 meq PO DAILYP PRN 11/04/19 Trazodone HCl [Desyrel] 100 mg PO HSP PRN 11/04/19 Triamcinolone Acetonide [Aristocort 0.1% Cream 15 gm] 1 applic TP BIDP PRN 11/04/19 Allergies/Adverse Reactions: No Known Allergies Allergy (Verified 06/01/17 09:57) Review of Systems Constitutional: PRESENT: anorexia, chills, fever(s), headache(s), weakness Eyes: ABSENT: visual disturbances Ears: ABSENT: hearing changes Nose, Mouth, and Throat: PRESENT: headache(s), sore throat Cardiovascular: PRESENT: chest pain, dyspnea on exertion Respiratory: PRESENT: cough, dyspnea, sputum Gastrointestinal: PRESENT: nausea Genitourinary: ABSENT: dysuria, hematuria Musculoskeletal: ABSENT: joint swelling Integumentary: PRESENT: diaphoresis - intermittent. ABSENT: rash, wounds Neurological: PRESENT: dizziness - particularly with change in position. ABSENT: abnormal gait, abnormal speech, confusion, focal weakness, syncope Psychiatric: ABSENT: anxiety, depression, homidical ideation, suicidal ideation Endocrine: ABSENT: cold intolerance, heat intolerance, menstrual abnormalities, polydipsia, polyuria Hematologic/Lymphatic: ABSENT: easy bleeding, easy bruising, lymphadenopathy Allergic/Immunologic: ABSENT: seasonal rhinorrhea Physical Exam Vital Signs: Temp Pulse Resp BP Pulse Ox 98.0 F 82 16 97 11/04/19 17:04 11/04/19 17:04 11/04/19 17:04 11/04/19 17:04 Intake & Output 11/03/19 11/04/19 11/05/19 06:59 06:59 06:59 Weight 67.8 kg General appearance: PRESENT: cooperative, mild distress - with coughing spells Head exam: PRESENT: atraumatic, normocephalic Eye exam: PRESENT: conjunctiva pink, EOMI, PERRLA. ABSENT: scleral icterus Ear exam: PRESENT: normal external ear exam Mouth exam: PRESENT: moist Throat exam: PRESENT: post pharyngeal erythema Respiratory exam: PRESENT: crackles, decreased breath sounds - at lung bases, rhonchi, wheezes Cardiovascular exam: PRESENT: RRR. ABSENT: diastolic murmur, rubs, systolic murmur Vascular exam: ABSENT: pallor GI/Abdominal exam: PRESENT: normal bowel sounds, soft. ABSENT: distended, guarding, mass, organolmegaly, rebound, tenderness Rectal exam: PRESENT: deferred Extremities exam: ABSENT: pedal edema Neurological exam: PRESENT: alert, awake, oriented to person, oriented to place, oriented to time, oriented to situation, CN II-XII grossly intact. ABSENT: motor sensory deficit Psychiatric exam: PRESENT: appropriate affect, normal mood. ABSENT: homicidal ideation, suicidal ideation Skin exam: PRESENT: dry, warm Results Laboratory Results: 11/04/19 15:44 11/04/19 15:44 11/04/19 11/04/19 15:44 15:44 WBC 5.3 RBC 4.41 Hgb 12.7 Hct 37.8 MCV 86 MCH 28.9 MCHC 33.7 RDW 14.4 H Plt Count 173 Seg Neutrophils % 70.1 Sodium 136.2 L Potassium 3.8 Chloride 101 Carbon Dioxide 28 Anion Gap 7 BUN 19 Creatinine 0.96 Est GFR ( Amer) > 60 Glucose 96 Calcium 9.0 Total Bilirubin 0.4 AST 21 Alkaline Phosphatase 50 Total Protein 6.3 Albumin 3.6 Impressions: Chest X-Ray 11/04/19 00:00 IMPRESSION: NO ACUTE RADIOGRAPHIC FINDING IN THE CHEST. Assessment & Plan - Diagnosis (1) COPD with acute exacerbation Is this a current diagnosis for this admission?: Yes Plan: See admitting attending physician orders for details about care plan. (2) HTN (hypertension) Qualifiers: Hypertension type: essential hypertension Qualified Code(s): I10 - Essential (primary) hypertension Is this a current diagnosis for this admission?: Yes Plan: See admitting attending physician orders for details about care plan. (3) CAD (coronary artery disease) Qualifiers: Coronary Disease-Associated Artery/Lesion type: [place] artery [place] vs. transplanted heart: [place] heart Associated angina: without angina Qualified Code(s): I25.10 - Atherosclerotic heart disease of [place] coronary artery without angina pectoris Is this a current diagnosis for this admission?: Yes Plan: See admitting attending physician orders for details about care plan. (4) FH: CABG (coronary artery bypass surgery) Is this a current diagnosis for this admission?: Yes Plan: See admitting attending physician orders for details about care plan. (5) HLD (hyperlipidemia) Qualifiers: Hyperlipidemia type: pure hypercholesterolemia Qualified Code(s): E78.00 - Pure hypercholesterolemia, unspecified; E78.0 - Pure hypercholesterolemia Is this a current diagnosis for this admission?: Yes Plan: See admitting attending physician orders for details about care plan. (6) GERD (gastroesophageal reflux disease) Qualifiers: Esophagitis presence: without esophagitis Qualified Code(s): K21.9 - Gastro-esophageal reflux disease without esophagitis Is this a current diagnosis for this admission?: Yes Plan: See admitting attending physician orders for details about care plan. (7) Perennial allergic rhinitis with seasonal variation Is this a current diagnosis for this admission?: Yes Plan: See admitting attending physician orders for details about care plan. (8) Anxiety Is this a current diagnosis for this admission?: Yes Plan: See admitting attending physician orders for details about care plan. (9) Osteoarthritis involving multiple joints on both sides of body Is this a current diagnosis for this admission?: Yes Plan: See admitting attending physician orders for details about care plan. (10) Persistent insomnia Is this a current diagnosis for this admission?: Yes Plan: See admitting attending physician orders for details about care plan. - Time Time Spent: Greater than 70 Minutes Medications reviewed and adjusted accordingly: Yes Anticipated discharge: Home with Homehealth Within: Other - Inpatient Certification Based on my medical assessment, after consideration of the patient's comorbidities, presenting symptoms, or acuity I expect that the services needed warrant INPATIENT care.: Yes I certify that my determination is in accordance with my understanding of Medicare's requirements for reasonable and necessary INPATIENT services [42 CFR 412.3e].: Yes Medical Necessity: Significant Comorbidiites Make Outpatient Treatment Too Risky, Need Close Monitoring Due to Risk of Patient Decompensation, Need For IV Fluids, Need For Continuous Telemetry Monitoring, Need for Nebulizer Therapy and Monitoring of Response, Risk of Complication if Not Cared For in Hospital, Risk of Diagnosis Which Will Require Inpatient Eval/Care/Monitoring Post Hospital Care: D/C Pediatric Dermatologist Documentation - Plan Summary Plan Summary: See admitting attending physician orders for details about care plan.
[2019-11-04] MEDS ORDERED: LORATADINE 10 MG TABLET PO PRN (20:35)
[2019-11-04] MEDS ORDERED: AMLODIPINE BESYLATE 5 MG TABLET PO SCH (22:00)
[2019-11-05] MEDS: METHYLPREDNISOLONE INJ 125 MG/2 ML SDV IV SCH ×3 (01:24→18:06)
[2019-11-05] MEDS: NORMAL SALINE 1000 ML 1,000 ML IV PRN ×3 (01:26→19:43)
[2019-11-05] MEDS: ACETAMINOPHEN 325 MG TABLET PO PRN ×3 (02:50→20:11)
[2019-11-05 05:57] LABS: ABSOLUTE LYMPHOCYTES (AUTO) 0.7 10^3/uL (0.5-4.7); ABSOLUTE NEUT (AUTO) 2.2 10^3/uL (1.7-8.2); BASOPHILS % (AUTO) 0.1 % (0-2); HEMATOCRIT 38.5 % (36.0-47.0); HEMOGLOBIN 13.1 g/dL (12.0-15.5); LYMPHOCYTES % (AUTO) 22.8 % (13-45); MEAN CORPUSCULAR HGB CONC 34.1 g/dL (32.0-36.0); MEAN CORPUSCULAR VOLUME 85 fl (80-97); MONOCYTES % (AUTO) 1.1 % (3-13); PLATELET COUNT 163 10^3/uL (150-450); RED BLOOD COUNT 4.53 10^6/uL (3.72-5.28); RED CELL DISTRIBUTION WIDTH 14.1 % (11.5-14.0); TOTAL CELLS COUNTED % (AUTO) 100 %
[2019-11-05 05:58] LABS: WHITE BLOOD COUNT 2.9 10^3/uL (4.0-10.5)
[2019-11-05 06:01] LABS: ANION GAP 8 (5-19); BLOOD UREA NITROGEN 17 mg/dL (7-20); CARBON DIOXIDE 26 mmol/L (22-30); CHLORIDE 102 mmol/L (98-107); GLUCOSE 145 mg/dL (75-110); POTASSIUM 3.8 mmol/L (3.6-5.0)
[2019-11-05] MEDS: AMLODIPINE BESYLATE 5 MG TABLET PO SCH ×2 (08:32→22:36)
[2019-11-05] MEDS: ENOXAPARIN SODIUM INJ 40 MG/0.4 ML DISP.SYRIN SUBCUT SCH (09:57)
[2019-11-05] MEDS: BUSPIRONE HCL 10 MG TABLET PO SCH (09:57)
[2019-11-05] MEDS: DONEPEZIL HCL 5 MG TABLET PO SCH (09:58)
[2019-11-05] MEDS: EZETIMIBE 10 MG TABLET PO SCH (09:58)
[2019-11-05] MEDS: PANTOPRAZOLE SODIUM 40 MG TABLET.DR PO SCH (09:58)
[2019-11-05] MEDS ORDERED: (PENDING PHARMACY ID) (Buspirone Hcl [Buspar 15 Mg Tablet] 1 TAB) PO SCH (10:00)
[2019-11-05] MEDS ORDERED: (PENDING PHARMACY ID) (Donepezil Hcl [Aricept] 10 MG) PO SCH (10:00)
[2019-11-05] MEDS: IPRATROPIUM/ALBUTEROL 0.5-2.5 MG/3 ML AMPUL NEB PRN (10:12)
[2019-11-05] MEDS: LOSARTAN POTASSIUM 50 MG TABLET PO SCH (19:53)
--- NOTE | 2019-11-05 20:12 | PDOC PROGRESS REPORT ---
Subjective Progress Note for:: 11/05/19 Subjective:: Patient reported improvement in her breathing. Less wheezing and coughing. No chest pain. No fever or chills. Patient reported nasal and sinus congestion with ongoing headache. No nausea, vomiting, or abdominal pain. Reason For Visit: EXACERBATION COPD WITH WHEEZING,PRODUCTIVE COUGH, Physical Exam Vital Signs: Temp Pulse Resp BP Pulse Ox 97.8 F 88 18 182/92 H 95 11/05/19 14:56 11/05/19 14:56 11/05/19 14:56 11/05/19 14:56 11/05/19 14:56 Intake & Output 11/04/19 11/05/19 11/06/19 06:59 06:59 06:59 Intake Total 932 3092 Balance 932 3092 Weight 70.1 kg General appearance: PRESENT: no acute distress, well-developed, well-nourished Head exam: PRESENT: atraumatic, normocephalic Eye exam: PRESENT: conjunctiva pink. ABSENT: scleral icterus Ear exam: PRESENT: normal external ear exam Mouth exam: PRESENT: moist Respiratory exam: PRESENT: decreased breath sounds, rhonchi - less in expiratory phase. Cardiovascular exam: PRESENT: RRR. ABSENT: diastolic murmur, rubs, systolic murmur Vascular exam: ABSENT: pallor GI/Abdominal exam: PRESENT: normal bowel sounds, soft. ABSENT: distended, guarding, mass, organolmegaly, rebound, tenderness Extremities exam: ABSENT: pedal edema Neurological exam: PRESENT: alert, awake, oriented to person, oriented to place, oriented to time, oriented to situation, CN II-XII grossly intact. ABSENT: motor sensory deficit Psychiatric exam: PRESENT: appropriate affect, normal mood. ABSENT: homicidal ideation, suicidal ideation Skin exam: PRESENT: dry, warm Results Laboratory Results: 11/05/19 05:04 11/05/19 05:04 11/05/19 11/05/19 05:04 05:04 WBC 2.9 L D RBC 4.53 Hgb 13.1 Hct 38.5 MCV 85 MCH 29.0 MCHC 34.1 RDW 14.1 H Plt Count 163 Seg Neutrophils % 76.0 Sodium 136.4 L Potassium 3.8 Chloride 102 Carbon Dioxide 26 Anion Gap 8 BUN 17 Creatinine 0.74 Est GFR ( Amer) > 60 Glucose 145 H Calcium 9.0 Impressions: Chest X-Ray 11/04/19 00:00 IMPRESSION: NO ACUTE RADIOGRAPHIC FINDING IN THE CHEST. Assessment & Plan - Diagnosis (1) COPD with acute exacerbation Is this a current diagnosis for this admission?: Yes (2) HTN (hypertension) Qualifiers: Hypertension type: essential hypertension Qualified Code(s): I10 - [place] l (primary) hypertension Is this a current diagnosis for this admission?: Yes (3) CAD (coronary artery disease) Qualifiers: Coronary Disease-Associated Artery/Lesion type: [place] artery [place] vs. transplanted heart: [place] heart Associated angina: without angina Qualified Code(s): I25.10 - Atherosclerotic heart disease of [place] coronary artery without angina pectoris Is this a current diagnosis for this admission?: Yes (4) FH: CABG (coronary artery bypass surgery) Is this a current diagnosis for this admission?: Yes (5) HLD (hyperlipidemia) Qualifiers: Hyperlipidemia type: pure hypercholesterolemia Qualified Code(s): E78.00 - Pure hypercholesterolemia, unspecified; E78.0 - Pure hypercholesterolemia Is this a current diagnosis for this admission?: Yes (6) GERD (gastroesophageal reflux disease) Qualifiers: Esophagitis presence: without esophagitis Qualified Code(s): K21.9 - Gastro-esophageal reflux disease without esophagitis Is this a current diagnosis for this admission?: Yes (7) Perennial allergic rhinitis with seasonal variation Is this a current diagnosis for this admission?: Yes (8) Anxiety Is this a current diagnosis for this admission?: Yes (9) Osteoarthritis involving multiple joints on both sides of body Is this a current diagnosis for this admission?: Yes (10) Persistent insomnia Is this a current diagnosis for this admission?: Yes - Time Time Spent with patient: 35 or more minutes Level of Care: CU Medications reviewed and adjusted accordingly: Yes Anticipated discharge: Home Within: Other - Inpatient Certification Based on my medical assessment, after consideration of the patient's comorbidities, presenting symptoms, or acuity I expect that the services needed warrant INPATIENT care.: Yes I certify that my determination is in accordance with my understanding of [facility]'s requirements for reasonable and necessary INPATIENT services [42 CFR 412.3e].: Yes Medical Necessity: Significant Comorbidiites Make Outpatient Treatment Too Risky, Need Close Monitoring Due to Risk of Patient Decompensation, Need For IV Fluids, Need For Continuous Telemetry Monitoring, Need for Nebulizer Therapy and Monitoring of Response, Risk of Complication if Not Cared For in Hospital, Risk of Diagnosis Which Will Require Inpatient Eval/Care/Monitoring Post Hospital Care: D/C Coremaking Supervisor Documentation - Plan Summary Plan Summary: Decrease IV fluid rate to 50 ml/hour. Start on Losartan 50 mg po daily. Decrease IV Solu Medrol to 60 mg q 8 hours. Continue all other current medication management.
[2019-11-05] MEDS ORDERED: ACETAMINOPHEN 325 MG TABLET PO PRN (20:13)
[2019-11-05] MEDS: TRAZODONE HCL 50 MG TABLET PO PRN (22:33)
[2019-11-06] MEDS: METHYLPREDNISOLONE INJ 125 MG/2 ML SDV IV SCH ×3 (01:23→17:07)
[2019-11-06] MEDS: NORMAL SALINE 1000 ML 1,000 ML IV PRN (03:13)
[2019-11-06] MEDS: GUAIFENESIN SYRP 200 MG/10 ML UDC PO PRN ×3 (03:14→21:31)
[2019-11-06] MEDS: IPRATROPIUM/ALBUTEROL 0.5-2.5 MG/3 ML AMPUL NEB PRN ×2 (08:02→15:43)
[2019-11-06] MEDS: PANTOPRAZOLE SODIUM 40 MG TABLET.DR PO SCH (09:39)
[2019-11-06] MEDS: LOSARTAN POTASSIUM 50 MG TABLET PO SCH (09:39)
[2019-11-06] MEDS: AMLODIPINE BESYLATE 5 MG TABLET PO SCH ×2 (09:40→21:31)
[2019-11-06] MEDS: BUSPIRONE HCL 10 MG TABLET PO SCH (09:40)
[2019-11-06] MEDS: DONEPEZIL HCL 5 MG TABLET PO SCH (09:40)
[2019-11-06] MEDS: EZETIMIBE 10 MG TABLET PO SCH (09:40)
[2019-11-06] MEDS: ENOXAPARIN SODIUM INJ 40 MG/0.4 ML DISP.SYRIN SUBCUT SCH (09:41)
--- NOTE | 2019-11-06 18:58 | PDOC PROGRESS REPORT ---
Subjective Progress Note for:: 11/06/19 Subjective:: Patient denied chest pain. Breathing improving but wheezing persist. She is not requesting for breathing treatment on prn order. Coughing spells persist. No fever or chills. No abdominal pain, nausea, or vomiting. Reason For Visit: EXACERBATION COPD Physical Exam Vital Signs: Temp Pulse Resp BP Pulse Ox 97.6 F 85 16 160/78 H 93 11/06/19 07:41 11/06/19 15:43 11/06/19 15:43 11/06/19 07:41 11/06/19 15:43 Intake & Output 11/05/19 11/06/19 11/07/19 06:59 06:59 06:59 Intake Total 932 4067 982 Balance 932 4067 982 Weight 70.1 kg 69 kg Physical Exam: General appearance: PRESENT: no acute distress, well-developed, well-nourished Head exam: PRESENT: atraumatic, normocephalic Eye exam: PRESENT: conjunctiva pink. ABSENT: pallor, scleral icterus Ear exam: PRESENT: normal external ear exam Mouth exam: PRESENT: moist Respiratory exam: PRESENT: decreased breath sounds, minimal rhonchi - less in expiratory phase. Cardiovascular exam: PRESENT: RRR. ABSENT: diastolic murmur, rubs, systolic murmur GI/Abdominal exam: PRESENT: normal bowel sounds, soft. ABSENT: distended, guarding, mass, organomegaly, rebound, tenderness Extremities exam: ABSENT: pedal edema Neurological exam: PRESENT: alert, awake, oriented to person, oriented to place, oriented to time, oriented to situation, CN II-XII grossly intact. ABSENT: motor sensory deficit Psychiatric exam: PRESENT: appropriate affect, normal mood. ABSENT: homicidal ideation, suicidal ideation Skin exam: PRESENT: dry, warm Results Laboratory Results: 11/05/19 05:04 11/05/19 05:04 Impressions: Chest X-Ray 11/04/19 00:00 IMPRESSION: NO ACUTE RADIOGRAPHIC FINDING IN THE CHEST. Assessment & Plan - Diagnosis (1) COPD with acute exacerbation Is this a current diagnosis for this admission?: Yes (2) HTN (hypertension) Qualifiers: Hypertension type: essential hypertension Qualified Code(s): I10 - Essential (primary) hypertension Is this a current diagnosis for this admission?: Yes (3) CAD (coronary artery disease) Qualifiers: Coronary Disease-Associated Artery/Lesion type: [place] artery [place] vs. transplanted heart: [place] heart Associated angina: without angina Qualified Code(s): I25.10 - Atherosclerotic heart disease of [place] coronary artery without angina pectoris Is this a current diagnosis for this admission?: Yes (4) FH: CABG (coronary artery bypass surgery) Is this a current diagnosis for this admission?: Yes (5) HLD (hyperlipidemia) Qualifiers: Hyperlipidemia type: pure hypercholesterolemia Qualified Code(s): E78.00 - Pure hypercholesterolemia, unspecified; E78.0 - Pure hypercholesterolemia Is this a current diagnosis for this admission?: Yes (6) GERD (gastroesophageal reflux disease) Qualifiers: Esophagitis presence: without esophagitis Qualified Code(s): K21.9 - Gastro-esophageal reflux disease without esophagitis Is this a current diagnosis for this admission?: Yes (7) Perennial allergic rhinitis with seasonal variation Is this a current diagnosis for this admission?: Yes (8) Anxiety Is this a current diagnosis for this admission?: Yes (9) Osteoarthritis involving multiple joints on both sides of body Is this a current diagnosis for this admission?: Yes (10) Persistent insomnia Is this a current diagnosis for this admission?: Yes - Time Time Spent with patient: 25-34 minutes Level of Care: IMCU Medications reviewed and adjusted accordingly: Yes Anticipated discharge: Home with Homehealth Within: Other - Inpatient Certification Based on my medical assessment, after consideration of the patient's comorbidities, presenting symptoms, or acuity I expect that the services needed warrant INPATIENT care.: Yes I certify that my determination is in accordance with my understanding of Medicare's requirements for reasonable and necessary INPATIENT services [42 CFR 412.3e].: Yes Medical Necessity: Significant Comorbidiites Make Outpatient Treatment Too Risky, Need Close Monitoring Due to Risk of Patient Decompensation, Need For IV Fluids, Need For Continuous Telemetry Monitoring, Need for Nebulizer Therapy and Monitoring of Response, Risk of Complication if Not Cared For in Hospital, Risk of Diagnosis Which Will Require Inpatient Eval/Care/Monitoring Post Hospital Care: D/C Construction Project Manager Documentation - Plan Summary Plan Summary: Decrease IV Solu Medrol to 40 mg q 8 hours. Change DuoNeb treatment to q4HWA. Start on Incruse Ellipta 62.5mcg p.o daily. Start on Benzonatate 100 mg po q 8 hours. Continue all other current medication management. Allow use of bedside flutter device and incentive spirometer.
[2019-11-06] MEDS: IPRATROPIUM/ALBUTEROL 0.5-2.5 MG/3 ML AMPUL NEB SCH (20:32)
[2019-11-06] MEDS: METHYLPREDNISOLONE INJ 40 MG/1 ML SDV IV SCH (21:30)
[2019-11-06] MEDS: BENZONATATE 100 MG CAPSULE PO SCH (21:31)
[2019-11-06] MEDS: UMECLIDINIUM BROMIDE 62.5 MCG/DOSE IH SCH (23:12)
[2019-11-06] MEDS: TRAZODONE HCL 50 MG TABLET PO PRN (23:14)
[2019-11-07] MEDS: BENZONATATE 100 MG CAPSULE PO SCH ×2 (06:51→14:00)
[2019-11-07] MEDS: NORMAL SALINE 1000 ML 1,000 ML IV PRN (06:51)
[2019-11-07] MEDS: METHYLPREDNISOLONE INJ 40 MG/1 ML SDV IV SCH ×2 (06:51→14:00)
[2019-11-07] MEDS: IPRATROPIUM/ALBUTEROL 0.5-2.5 MG/3 ML AMPUL NEB SCH ×3 (08:41→15:48)
[2019-11-07 11:00] LABS: ABSOLUTE LYMPHOCYTES (AUTO) 0.6 10^3/uL (0.5-4.7); ABSOLUTE MONOCYTES (AUTO) 0.2 10^3/uL (0.1-1.4); ABSOLUTE NEUT (AUTO) 7.8 10^3/uL (1.7-8.2); BASOPHILS % (AUTO) 0.1 % (0-2); HEMOGLOBIN 12.8 g/dL (12.0-15.5); LYMPHOCYTES % (AUTO) 6.6 % (13-45); MEAN CORPUSCULAR HEMOGLOBIN 28.7 pg (27.0-33.4); MEAN CORPUSCULAR HGB CONC 33.7 g/dL (32.0-36.0); MEAN CORPUSCULAR VOLUME 85 fl (80-97); MONOCYTES % (AUTO) 2.8 % (3-13); PLATELET COUNT 159 10^3/uL (150-450); RED BLOOD COUNT 4.45 10^6/uL (3.72-5.28); RED CELL DISTRIBUTION WIDTH 14.7 % (11.5-14.0); SEGMENTED NEUTROPHILS % (AUTO) 90.5 % (42-78); TOTAL CELLS COUNTED % (AUTO) 100 %
[2019-11-07 11:01] LABS: WHITE BLOOD COUNT 8.7 10^3/uL (4.0-10.5)
[2019-11-07] MEDS: BUSPIRONE HCL 10 MG TABLET PO SCH (11:22)
[2019-11-07] MEDS: EZETIMIBE 10 MG TABLET PO SCH (11:23)
[2019-11-07] MEDS: LOSARTAN POTASSIUM 50 MG TABLET PO SCH (11:23)
[2019-11-07] MEDS: PANTOPRAZOLE SODIUM 40 MG TABLET.DR PO SCH (11:23)
[2019-11-07] MEDS: AMLODIPINE BESYLATE 5 MG TABLET PO SCH (11:23)
[2019-11-07] MEDS: DONEPEZIL HCL 5 MG TABLET PO SCH (11:24)
[2019-11-07] MEDS: ENOXAPARIN SODIUM INJ 40 MG/0.4 ML DISP.SYRIN SUBCUT SCH (11:24)
[2019-11-07] MEDS: UMECLIDINIUM BROMIDE 62.5 MCG/DOSE IH SCH (11:24)
[2019-11-07 11:48] LABS: ALBUMIN 3.4 g/dL (3.5-5.0); ALKALINE PHOSPHATASE 48 U/L (38-126); ANION GAP 10 (5-19); ASPARTATE AMINO TRANSFERASE 116 U/L (14-36); BILIRUBIN,DIRECT 0.3 mg/dL (0.0-0.4); BILIRUBIN,TOTAL 0.3 mg/dL (0.2-1.3); BLOOD UREA NITROGEN 20 mg/dL (7-20); CALCIUM 8.8 mg/dL (8.4-10.2); CARBON DIOXIDE 24 mmol/L (22-30); CHLORIDE 102 mmol/L (98-107); GLUCOSE 183 mg/dL (75-110); POTASSIUM 3.4 mmol/L (3.6-5.0); TOTAL PROTEIN 6.2 g/dL (6.3-8.2)
--- NOTE | 2019-11-07 18:40 | PDOC DISCHARGE SUMMARY ---
Impression - Admit/DC Date/PCP Admission Date/Primary Care Provider: 11/06/19 15:50 DANY GARCIA Discharge Date: 11/07/19 - Discharge Diagnosis (1) COPD with acute exacerbation Is this a current diagnosis for this admission?: Yes (2) HTN (hypertension) Is this a current diagnosis for this admission?: Yes (3) CAD (coronary artery disease) Is this a current diagnosis for this admission?: Yes (4) FH: CABG (coronary artery bypass surgery) Is this a current diagnosis for this admission?: Yes (5) HLD (hyperlipidemia) Is this a current diagnosis for this admission?: Yes (6) GERD (gastroesophageal reflux disease) Is this a current diagnosis for this admission?: Yes (7) Perennial allergic rhinitis with seasonal variation Is this a current diagnosis for this admission?: Yes (8) Anxiety Is this a current diagnosis for this admission?: Yes (9) Osteoarthritis involving multiple joints on both sides of body Is this a current diagnosis for this admission?: Yes (10) Persistent insomnia Is this a current diagnosis for this admission?: Yes - Assessment Summary: Patient was admitted for exacerbated COPD and managed appropriately with bronchodilators and IV Solu Medrol. Her symptom persist with need for addition of Incruse Elliptra LAMA therapy. Her wheezing and breathing has improved significantly and patient requested discharge home today with nebulizer device and solution. She will follow up i the office as instructed upon discharge. - Additional Information Resuscitation Status: Full Code Referrals: DANY GARCIA MD [Primary Care Provider] - 11/18/19 10:00 am Prescriptions: Prednisone [Deltasone 5 mg Tablet] 5 mg PO ASDIR PRN #34 tablet PRN Reason: Ipratropium/Albuterol Sulfate [Duoneb 3 ml Ampul] 3 ml NEB Q4HP PRN #120 vial.neb PRN Reason: For Wheezing Umeclidinium Eek [Incruse 62.5 Mcg Ellipta 7 Dose/Dpi] 1 inh IH DAILY #1 inhaler Benzonatate [Tessalon Perles 100 mg Capsule] 100 mg PO Q8 #60 capsule Home Medications: Albuterol Sulfate [Proair HFA Inhalation Aerosol 8.5 gm MDI] 2 puff IH QIDP PRN 11/04/19 Amlodipine Besylate [Norvasc 5 mg Tablet] 5 mg PO Q12 11/04/19 Buspirone HCl [Buspar 15 mg Tablet] 1 tab PO DAILY 11/04/19 Donepezil HCl [Aricept] 10 mg PO DAILY 11/04/19 Ezetimibe [Zetia 10 mg Tablet] 10 mg PO DAILY 11/04/19 Fexofenadine HCl [Aurelia] 180 mg PO DAILYP PRN 11/04/19 Fluticasone/Salmeterol [Advair 250-50 Diskus 14 Dose/Diskus] 1 inh IH Q12 11/04/19 Hydrochlorothiazide [Hydrodiuril 25 mg Tablet] 25 mg PO DAILY 11/04/19 Hydrocortisone [Proctozone-Hc] 1 applic TP BIDP PRN 11/04/19 Nitroglycerin [Nitrostat 0.4 mg (1/150 Gr) Tabs 25/Bottle] 1 tab SL Q5MP PRN 11/04/19 Omeprazole 20 mg PO DAILY 11/04/19 Potassium Chloride [Klor-Con 10 Meq Tablet ER] 10 meq PO DAILYP PRN 11/04/19 Trazodone HCl [Desyrel] 100 mg PO HSP PRN 11/04/19 Triamcinolone Acetonide [Aristocort 0.1% Cream] 1 applic TP BIDP PRN 11/04/19 Benzonatate [Tessalon Perles 100 mg Capsule] 100 mg PO Q8 #60 capsule 11/07/19 Ipratropium/Albuterol Sulfate [Duoneb 3 ml Ampul] 3 ml NEB Q4HP PRN #120 vial.neb 11/07/19 Prednisone [Deltasone 5 mg Tablet] 5 mg PO ASDIR PRN #34 tablet 11/07/19 Umeclidinium Eek [Incruse 62.5 Mcg Ellipta 7 Dose/Dpi] 1 inh IH DAILY #1 inhaler 11/07/19 History of Present Illiness History of Present Illness: PAYTON MOREIRA is a 79 year old female known to my practice who presented to the office with her daughter complaining about worsening difficulty with breathing over preceding few days. She reported associated wheezing, productive cough with pleurisy, fever, chills, breaking out in sweat, nausea, sore throat, dizziness, and headache. Her initial evaluation in the office revealed acutely ill looking elderly patient with fairly stable vitals with demonstrable coughing spells. Her influenza A and B as well as rapid strep group A assessment were negative. Her chest X ray did suggest COPD with possible right lower lobe early airspace disease process. She was advised hospitalization on observation bed for further evaluation and management. Her morbidities are as listed below. Hospital Course Hospital Course: Patient was admitted for exacerbated COPD and managed appropriately with bronchodilators and IV Solu Medrol. Her symptom persist with need for addition of Incruse Elliptra LAMA therapy. Her wheezing and breathing has improved significantly and patient requested discharge home today with nebulizer device and solution. She will follow up i the office as instructed upon discharge. Physical Exam Vital Signs: Temp Pulse Resp BP Pulse Ox 97.7 F 75 16 153/69 H 96 11/07/19 16:35 11/07/19 16:35 11/07/19 16:35 11/07/19 16:35 11/07/19 16:35 Intake & Output 11/06/19 11/07/19 11/08/19 06:59 06:59 06:59 Intake Total 4067 2817 697 Balance 4067 2817 697 Weight 69 kg 70.1 kg General appearance: PRESENT: no acute distress, well-developed, well-nourished Head exam: PRESENT: atraumatic, normocephalic Eye exam: PRESENT: conjunctiva pink. ABSENT: pallor, scleral icterus Ear exam: PRESENT: normal external ear exam Mouth exam: PRESENT: moist Respiratory exam: PRESENT: decreased breath sounds, minimal end expiratory rhonchi. Cardiovascular exam: PRESENT: RRR. ABSENT: diastolic murmur, rubs, systolic murmur GI/Abdominal exam: PRESENT: normal bowel sounds, soft. ABSENT: distended, guarding, mass, organomegaly, rebound, tenderness Extremities exam: ABSENT: pedal edema Neurological exam: PRESENT: alert, awake, oriented to person, oriented to place, oriented to time, oriented to situation, CN II-XII grossly intact. ABSENT: motor sensory deficit Psychiatric exam: PRESENT: appropriate affect, normal mood. ABSENT: homicidal ideation, suicidal ideation Skin exam: PRESENT: dry, warm Results Laboratory Results: WBC 8.7 10^3/uL (4.0-10.5) D 11/07/19 10:29 RBC 4.45 10^6/uL (3.72-5.28) 11/07/19 10:29 Hgb 12.8 g/dL (12.0-15.5) 11/07/19 10:29 Hct 38.0 % (36.0-47.0) 11/07/19 10:29 MCV 85 fl (80-97) 11/07/19 10:29 MCH 28.7 pg (27.0-33.4) 11/07/19 10:29 MCHC 33.7 g/dL (32.0-36.0) 11/07/19 10:29 RDW 14.7 % (11.5-14.0) H 11/07/19 10:29 Plt Count 159 10^3/uL (150-450) 11/07/19 10:29 Lymph % (Auto) 6.6 % (13-45) L 11/07/19 10:29 Power % (Auto) 2.8 % (3-13) L 11/07/19 10:29 Eos % (Auto) 0.0 % (0-6) 11/07/19 10:29 Baso % (Auto) 0.1 % (0-2) 11/07/19 10:29 Absolute Neuts (auto) 7.8 10^3/uL (1.7-8.2) 11/07/19 10:29 Absolute Lymphs (auto) 0.6 10^3/uL (0.5-4.7) 11/07/19 10:29 Absolute Monos (auto) 0.2 10^3/uL (0.1-1.4) 11/07/19 10:29 Absolute Eos (auto) 0.0 10^3/uL (0.0-0.6) 11/07/19 10:29 Absolute Basos (auto) 0.0 10^3/uL (0.0-0.2) 11/07/19 10:29 Seg Neutrophils % 90.5 % (42-78) H 11/07/19 10:29 Sodium 136.1 mmol/L (137-145) L 11/07/19 10:29 Potassium 3.4 mmol/L (3.6-5.0) L 11/07/19 10:29 Chloride 102 mmol/L (98-107) 11/07/19 10:29 Carbon Dioxide 24 mmol/L (22-30) 11/07/19 10:29 Anion Gap 10 (5-19) 11/07/19 10:29 BUN 20 mg/dL (7-20) 11/07/19 10:29 Creatinine 0.84 mg/dL (0.52-1.25) 11/07/19 10:29 Est GFR ( Amer) > 60 (>60) 11/07/19 10:29 Est GFR (MDRD) Non-Af > 60 (>60) 11/07/19 10:29 Glucose 183 mg/dL (75-110) H 11/07/19 10:29 Calcium 8.8 mg/dL (8.4-10.2) 11/07/19 10:29 Total Bilirubin 0.3 mg/dL (0.2-1.3) 11/07/19 10:29 Direct Bilirubin 0.3 mg/dL (0.0-0.4) 11/07/19 10:29 Neonat Total Bilirubin Not Reportable 11/07/19 10:29 Neonat Direct Bilirubin Not Reportable 11/07/19 10:29 Neonat Indirect Bili Not Reportable 11/07/19 10:29 AST 116 U/L (14-36) H 11/07/19 10:29 ALT 100 U/L (<35) 11/07/19 10:29 Alkaline Phosphatase 48 U/L (38-126) 11/07/19 10:29 Total Protein 6.2 g/dL (6.3-8.2) L 11/07/19 10:29 Albumin 3.4 g/dL (3.5-5.0) L 11/07/19 10:29 Impressions: Chest X-Ray 11/04/19 00:00 IMPRESSION: NO ACUTE RADIOGRAPHIC FINDING IN THE CHEST. Plan Health Concerns: High risk for readmission. Medication compliance due to her memory impairment. Plan of Treatment: Close monitoring and emphasized family support. Goals: Reduce readmission risk. Improve medication compliance. Time Spent: Greater than 30 Minutes - I had extensive discussion with patient and daughter at bedside regarding post acute care treatment plan and compliance with medication administration. Daughter at this time declined SENIOR MARKETING ENGINEER services. Stroke Is this a Stroke Patient?: No Acute Heart Failure - Is this a Heart Failure Patient?: No
[2019-11-07 18:44] VITALS: BP 142/63
== END 2019-11-07 19:10 | disposition home or self-care (01) | DRG 192 ==
LOC: 3S 14:13 → OBSVTOIN 11-06 15:50
PROVIDERS: ADMIT Internal Medicine Geriatric Medicine; ATTEND Internal Medicine Geriatric Medicine
DX: J44.1 Chronic obstructive pulmonary disease with (acute) exacerbation (principal); I10 Essential (primary) hypertension; I25.10 Atherosclerotic heart disease of native coronary artery without angina pectoris; E78.5 Hyperlipidemia, unspecified; E03.9 Hypothyroidism, unspecified; K21.9 Gastro-esophageal reflux disease without esophagitis; F41.9 Anxiety disorder, unspecified; G47.09 Other insomnia; J30.89 Other allergic rhinitis; M19.90 Unspecified osteoarthritis, unspecified site; I25.2 Old myocardial infarction; Z79.51 Long term (current) use of inhaled steroids; Z79.899 Other long term (current) drug therapy; Z95.1 Presence of aortocoronary bypass graft
CPT/HCPCS: 36415; 71046; 80048; 80053; 85025; G0378; G0379; J1650; J2920; J2930; J3490; J7030; J7620

== ENCOUNTER → 2020-06-23 | Outpatient (CLI) | payer MEDICARE, OTHER ==
--- NOTE | 2020-06-23 10:47 | RADIOLOGY REPORT (SQ) ---
EXAM DESCRIPTION: U/S RETROPERITON (RENAL/AORTA) IMAGES COMPLETED DATE/TIME: 06/23/2020 8:55 am REASON FOR STUDY: R10.9 UNSPECIFIED ABDOMINAL PAIN R10.9 UNSPECIFIED ABDOMINAL PAIN COMPARISON: CT of the abdomen and pelvis with contrast from 05/06/2020. TECHNIQUE: Dynamic and static grayscale images acquired of the kidneys and bladder and recorded on P ACS. Additional selected color Doppler and spectral images recorded. LIMITATIONS: None. FINDINGS: RIGHT KIDNEY: The right kidney measures 10.3 cm in length. The corticomedullary differenti ation is preserved. There is no hydronephrosis, calcification or mass. LEFT KIDNEY: The left kidney measures 9 cm in length. The corticomedullary differentiation is pres erved. There is no hydronephrosis, calcification or mass. BLADDER: The urinary bladder is partially distended. There is no bladder mass. OTHER FINDINGS: No other finding. IMPRESSION: No acute abnormality of the kidneys and urinary bladder. TECHNICAL DOCUMENTATION: JOB ID: [id number] 2010 [employer]- All Rights Reserved Reading location - IP/workstation name: [email or web address]
== END ==
LOC: RAD 08:26
PROVIDERS: ATTEND Nurse Practitioner Adult Health
DX: R10.9 Unspecified abdominal pain (principal)
CPT/HCPCS: 76770

== ENCOUNTER 2020-10-25 09:26 | Emergency (ER) | payer MEDICARE, OTHER ==
[2020-10-25] MEDS ORDERED: IPRATROPIUM/ALBUTEROL 0.5-2.5 MG/3 ML AMPUL NEB ONE ×2 (09:51→11:01)
[2020-10-25] MEDS ORDERED: METHYLPREDNISOLONE INJ 125 MG/2 ML SDV IV ONE (09:51)
--- NOTE | 2020-10-25 09:53 | ER Document Report ---
ED Respiratory Problem - General Chief Complaint: Shortness Of Breath Stated Complaint: SHORT OF BREATH,COUGH Time Seen by Provider: 10/25/20 09:48 Primary Care Provider: JULIO BARRERA NP-C [Primary Care Provider] - Follow up as needed Notes: Patient is an 80-year-old female that comes emergency department for chief co mplaint of 2 weeks of worsening difficulty breathing. She states this morning she could not catch her breath. She reports a lot of wheezing with occasional cough. She denies fever/chills, nausea/vomiting, chest pain. She denies any sick contacts, denies loss of taste or smell, denies any other symptoms. She does have a history of COPD, former smoker, uses albuterol nebulizer at home. She also has a history of CABG in the , hypertension, hyperlipidemia, hypothyroidism. TRAVEL OUTSIDE OF THE [place] IN LAST 30 DAYS: No - Related Data Allergies/Adverse Reactions: No Known Allergies Allergy (Verified 06/01/17 09:57) Past Medical History - General Information source: Patient - Social History Smoking Status: Never Smoker Chew tobacco use (# tins/day): No Frequency of alcohol use: None Drug Abuse: None Lives with: Alone Family History: Reviewed & Not Pertinent - Past Medical History Cardiac Medical History: Reports: Hx Coronary Artery Disease, Hx Heart Attack - 1989, Hx Hypercholesterolemia, Hx Hypertension Denies: Hx Atrial Fibrillation, Hx Congestive Heart Failure, Hx Peripheral Vascular Disease, Hx Pulmonary Embolism, Hx Heart Murmur Pulmonary Medical History: Reports: Hx Asthma, Hx COPD Denies: Hx Bronchitis, Hx Pneumonia, Hx Respiratory Failure, Hx Sleep Apnea, Hx Tuberculosis Neurological Medical History: Denies: Hx Cerebrovascular Accident, Hx Seizures, Hx Parkinson's Disease Endocrine Medical History: Reports: Hx Hypothyroidism Renal/ Medical History: Denies: Hx End Stage Renal Disease, Hx Kidney Stones, Hx Peritoneal Dialysis Malignancy Medical History: Denies: Hx Lung Cancer GI Medical History: Reports: Hx Gastroesophageal Reflux Disease. Denies: Hx Hepatitis, Hx Hiatal Hernia, Hx Irritable Bowel, Hx Liver Failure, Hx Pancreatitis, Hx Ulcer Musculoskeletal Medical History: Denies Hx Arthritis, Denies Hx Fibromyalgia, Denies Hx Multiple Sclerosis, Denies Hx Muscular Dystrophy Psychiatric Medical History: Reports: Hx Depression Denies: Hx Bipolar Disorder, Hx Dementia, Hx Post Traumatic Stress Disorder, Hx Schizophrenia Traumatic Medical History: Denies: Hx Fractures Infectious Medical History: Denies: Hx Hepatitis Past Surgical History: Reports: Hx Cardiac Surgery - CABG, Hx Open Heart Surgery - 1989. Denies: Hx Colostomy, Hx Hysterectomy, Hx Mastectomy, Hx Pacemaker - Immunizations Hx Diphtheria, Pertussis, Tetanus Vaccination: Yes Hx Pneumococcal Vaccination: 11/21/12 Review of Systems - Review of Systems Constitutional: No symptoms reported EENT: No symptoms reported Cardiovascular: No symptoms reported Respiratory: See HPI Gastrointestinal: No symptoms reported Genitourinary: No symptoms reported Female Genitourinary: No symptoms reported Musculoskeletal: No symptoms reported Skin: No symptoms reported Hematologic/Lymphatic: No symptoms reported Neurological/Psychological: No symptoms reported Physical Exam - Vital signs Vitals: Temp Pulse Resp BP Pulse Ox 98.2 F 80 20 159/95 H 92 10/25/20 09:33 10/25/20 09:33 10/25/20 09:33 10/25/20 09:33 10/25/20 09:33 - Notes Notes: GENERAL: Alert, interacts well. No acute distress. HEAD: Normocephalic, atraumatic. EYES: Pupils equal, round, and reactive to light. Extraocular movements intact. ENT: Oral mucosa moist, tongue midline. Oropharynx unremarkable. Airway patent. NECK: Full range of motion. Supple. Trachea midline. No lymphadenopathy. LUNGS: Expiratory wheezes throughout with mild tachypnea although she can speak in full sentences. No rales or rhonchi. Otherwise unremarkable. HEART: Regular rate and rhythm. No murmur ABDOMEN: Soft, non-tender. Non-distended. EXTREMITIES: Moves all 4 extremities spontaneously. No edema, normal radial and dorsalis pedis pulses bilaterally. No cyanosis. BACK: no cervical, thoracic, lumbar midline tenderness. No saddle anesthesia, normal distal neurovascular exam. Moves all extremities in full range of motion. NEUROLOGICAL: Alert and oriented x3. Normal speech. Cranial nerves II through XII grossly intact. Strength 5/5 in all extremities. PSYCH: Normal affect, normal mood. SKIN: Warm, dry, normal turgor. No rashes or lesions noted. Course - Re-evaluation Re-evalutation: Initially patient with expiratory wheezes throughout, significantly improved on reevaluation, then resolved after additional treatments. She is not hypoxic on my evaluation on room air. She ambulated without hypoxia or dyspnea, she states surprising pleasure on how well she is doing now. Chest x-ray unremarkable without acute findings, CBC, chemistry, troponin without acute findings, venous blood gas nonspecific. There is elevated CO2 and elevated bicarbonate with normal pH, I suspect this is chronic, I do not have a comparison. I discussed with Dr. Ni. Discussed with patient. Patient will not be discharged on steroids, I discussed options and we decided to COVID-19 test her as well although I believe this is a COPD exacerbation without secondary infection. Patient states she will follow close with her primary and return if she worsens in any way. Stable and well-appearing at time of discharge. - Vital Signs Vital signs: Temp Pulse Resp BP Pulse Ox 98.2 F 80 17 160/78 H 97 10/25/20 09:33 10/25/20 09:33 10/25/20 14:03 10/25/20 14:03 10/25/20 14:03 - Laboratory Results Result Diagrams: 10/25/20 10:15 10/25/20 10:15 Laboratory Results Interpreted: 10/25/20 10/25/20 10/25/20 10:15 10:15 11:14 RDW 14.2 H Eos % (Auto) 9.8 H VBG pCO2 65.3 H* VBG HCO3 33.4 H Sodium 134.3 L Carbon Dioxide 31 H Anion Gap 2 L Est GFR (MDRD) Non-Af 58 L Direct Bilirubin 0.5 H AST 39 H Critical Laboratory Results Reviewed: Yes Attending or Supervising Physician who Reviewed Labs: MARYURI IN - Radiology Results Critical Radiology Results Reviewed: No Critical Results - EKG Interpretation by Me Additional EKG results interpreted by me: EKG shows sinus rhythm at a rate of 73, normal axis, QTC 441, no T wave inversions or systemic changes in consecutive leads Discharge - Discharge Clinical Impression: COPD exacerbation, Wheezing, Shortness of breath, Person under investigation for COVID-19 Condition: Stable Disposition: HOME, SELF-CARE Instructions: COVID-19 Guidance for Persons Under Investigation Additional Instructions: Your evaluation is consistent with a COPD exacerbation. Take the steroids as prescribed, continue albuterol, rest. Follow closely with primary care for additional management and monitoring. We have tested you for COVID-19, you will be contacted by phone with your results, please quarantine while you are awaiting this. Come back if you are worse in any way including chest pain, difficulty breathing, developing fever, or any other concerning or worsening symptoms. Prescriptions: Prednisone [Deltasone 20 mg Tablet] 3 tab PO DAILY 5 Days #15 tablet Referrals: JULIO BARRERA NP-C [Primary Care Provider] - Follow up as needed
[2020-10-25 10:34] LABS: ABSOLUTE BASOPHILS # (AUTO) 0.1 10^3/uL (0.0-0.2); ABSOLUTE EOSINOPHILS # (AUTO) 0.6 10^3/uL (0.0-0.6); ABSOLUTE LYMPHOCYTES (AUTO) 1.7 10^3/uL (0.5-4.7); ABSOLUTE MONOCYTES (AUTO) 0.4 10^3/uL (0.1-1.4); ABSOLUTE NEUT (AUTO) 3.6 10^3/uL (1.7-8.2); BASOPHILS % (AUTO) 0.9 % (0-2); EOSINOPHILS % (AUTO) 9.8 % (0-6); HEMATOCRIT 37.1 % (36.0-47.0); HEMOGLOBIN 12.6 g/dL (12.0-15.5); MEAN CORPUSCULAR HEMOGLOBIN 29.1 pg (27.0-33.4); MEAN CORPUSCULAR HGB CONC 34.1 g/dL (32.0-36.0); MEAN CORPUSCULAR VOLUME 86 fl (80-97); PLATELET COUNT 223 10^3/uL (150-450); RED BLOOD COUNT 4.33 10^6/uL (3.72-5.28); RED CELL DISTRIBUTION WIDTH 14.2 % (11.5-14.0); SEGMENTED NEUTROPHILS % (AUTO) 57.3 % (42-78); TOTAL CELLS COUNTED % (AUTO) 100 %; WHITE BLOOD COUNT 6.4 10^3/uL (4.0-10.5)
[2020-10-25 10:54] LABS: ALBUMIN 4.1 g/dL (3.5-5.0); ALKALINE PHOSPHATASE 44 U/L (38-126); ASPARTATE AMINO TRANSFERASE 39 U/L (14-36); BILIRUBIN,DIRECT 0.5 mg/dL (0.0-0.4); BILIRUBIN,TOTAL 1.1 mg/dL (0.2-1.3); BLOOD UREA NITROGEN 20 mg/dL (7-20); CALCIUM 9.3 mg/dL (8.4-10.2); GLUCOSE 96 mg/dL (75-110); POTASSIUM 4.6 mmol/L (3.6-5.0); TOTAL PROTEIN 6.9 g/dL (6.3-8.2)
[2020-10-25 11:00] LABS: CARBON DIOXIDE 31 mmol/L (22-30); CHLORIDE 101 mmol/L (98-107)
[2020-10-25] MEDS ORDERED: MAGNESIUM SULFATE/D5W 1 GM/100 ML RTUPB IV ONE (11:00)
[2020-10-25 11:02] LABS: ANION GAP 2 (5-19)
--- NOTE | 2020-10-25 11:06 | RADIOLOGY REPORT (SQ) ---
EXAM DESCRIPTION: CHEST SINGLE VIEW IMAGES COMPLETED DATE/TIME: 10/25/2020 10:59 am REASON FOR STUDY: hypoxia, difficulty breathing COMPARISON: 11/04/2019 EXAM PARAMETERS: NUMBER OF VIEWS: One view. TECHNIQUE: Single frontal radiographic view of the chest acquired. RADIATION DOSE: NA LIMITATIONS: None. FINDINGS: LUNGS AND PLEURA: No opacities, masses or pneumothorax. No pleural effusion. MEDIASTINUM AND HILAR STRUCTURES: No masses. Contour normal. HEART AND VASCULAR STRUCTURES: Heart normal in size. Normal vasculature. BONES: No acute findings. HARDWARE: Sternotomy wires are in place. OTHER: No other significant finding. IMPRESSION: NO ACUTE RADIOGRAPHIC FINDING IN THE CHEST. TECHNICAL DOCUMENTATION: JOB ID: [id number] 2010 [facility]- All Rights Reserved Reading location - IP/workstation name: [email or web address]
[2020-10-25 11:37] LABS: VENOUS BLOOD BASE EXCESS 5.4 mmol/L; VENOUS BLOOD HCO3 33.4 mmol/L (20-32); VENOUS BLOOD PH 7.33 (7.30-7.42)
[2020-10-25 11:39] LABS: VENOUS BLOOD PCO2 65.3 mmHg (35-63)
--- NOTE | 2020-10-25 14:50 | EKG REPORT ---
SEVERITY:- ABNORMAL ECG - SINUS RHYTHM PROBABLE LEFT ATRIAL ABNORMALITY CONSIDER ANTEROSEPTAL INFARCT : Confirmed by: Jude Stuart 25-Oct-2020 14:49:22
[2020-10-25 15:08] VITALS: BP 160/78
== END 2020-10-25 14:25 | disposition home or self-care (01) ==
LOC: ER 09:26
DX: J44.1 Chronic obstructive pulmonary disease with (acute) exacerbation (principal); R06.2 Wheezing; Z20.828 Contact with and (suspected) exposure to other viral communicable diseases; R06.02 Shortness of breath; R05 Cough; Z87.891 Personal history of nicotine dependence; Z79.899 Other long term (current) drug therapy; I25.10 Atherosclerotic heart disease of native coronary artery without angina pectoris; I25.2 Old myocardial infarction; I10 Essential (primary) hypertension
CPT/HCPCS: 93005; 94640 ×2; 99285; 96375; 96365; 96366; 36415; 85025; 80053; 84484; 82803; 71045; 93010; U0003; J2930; J3475; C9803; 87635